=== PATIENT | female | born 1980 | race Caucasian/White ===

== ENCOUNTER 2024-03-08 17:24 | Emergency (ER) | payer MEDICARE, MEDICAID, SELFPAY ==
[2024-03-08 17:35] VITALS: BP 134/81; PULSE 119; RESP 16; TEMP 37.2; O2SAT 100
--- NOTE | 2024-03-08 18:34 | ED.WOUNDLAC ---
HPI - Wound/Laceration General Chief Complaint: Wound/Laceration Stated Complaint: Insect Bite Time Seen by Provider: 03/08/24 18:35 Source: patient, RN notes reviewed and old records reviewed Mode of arrival: ambulatory Limitations: no limitations History of Present Illness HPI narrative: 44 year old female presents to [facility] with complaints of noting 3 days ago a bug bite below right anterior knee which has increased in redness and pain with white pustule type of wound noted. Patient has pain and redness from below knee to anterior lower leg. Patient reports no fevers, chills or body aches. Patient requesting refills of asthma and depression medication has appointment with new provider in April. Patient does not know dose and is not completely sure of past depression medication, is not noted to of been refilled in some time per medication history. Onset (ago): day(s) (3) Location: other (below right anterior knee) Extremity Location: Right: knee (pustule lesion with surrounding redness below patella) Treatments prior to arrival: other (none) Related Data Home Medications Medication Instructions Recorded Confirmed Depression Med. 03/08/24 albuterol 03/08/24 Allergies Allergy/AdvReac Type Severity Reaction Status Date / Time clonazepam Allergy Unknown Unknown Verified 03/08/24 18:06 tramadol AdvReac Unknown NAUSEA Verified 02/07/17 14:38 Review of Systems Review of Systems: CONSTITUTIONAL: Denies fever, chills, or sweats. CARDIOVASCULAR: Denies chest pain, palpitations, or edema. RESPIRATORY: Denies cough or dyspnea. GASTROINTESTINAL: Denies abdominal pain, nausea, vomiting SKIN: Reports redness and swelling, pain to below right knee with whitish pimple type of lesion with surrounding redness and pain down anterior leg. No drainage, noted is painful MUSCULOSKELETAL: Denies myalgia. NEUROLOGIC: Denies headache, numbness All systems reviewed & are unremarkable except as noted in HPI and below PMFSH Past Medical History Medical History Asthma Bacterial vaginosis Bipolar disorder Depression Surgical History Surgical History H/O hemorrhoidectomy H/O sinus surgery H/O tubal ligation History of inguinal hernia repair, bilateral Previous section x3 Family History Family History Father Family history of bipolar disorder Family history of heart disease in male family member before age 55 Social History Social History Smoking status: Heavy tobacco smoker Alcohol intake: never Comments At time of signature, agree with nursing past medical, surgical, social and family history. There is no relevant family history pertinent to the presenting complaint Exam Narrative: GENERAL: Well-appearing, well-nourished, and in no acute distress. HEAD: Normocephalic, atraumatic. EYES: PERRLA and EOMI. ENT: Nares clear, no rhinorrhea or epistaxis. Mucous membranes moist.TM's normal, throat pink with no redness or swelling NECK: Supple.no lymphadenopathy CHEST: Clear to auscultation. No respiratory distress.occasional cough noted. SAO2 100% on room air reports history of asthma and smokes 1ppd HEART: Regular rate and rhythm. No murmur heard. Normal peripheral pulses. ABDOMEN: Soft, nontender, nondistended, normal active bowel sounds. EXTREMITIES: Normal range of motion. No edema. SKIN: Warm, dry. Erythema, induration, tenderness, below right knee area with radiation of pain down anterior leg, warmth with pustule formation with surrounding redness, no drainage noted no fluctuation of tissue noted. NEURO: No focal deficits. Alert and oriented x3. Course Course Emergency Course: Patient is aware of diagnosis, understands and agrees to treatment plan. Anticipatory guidance given
== END 2024-03-08 18:52 | disposition home or self-care (01) ==
PROVIDERS: Emergency Provider Registered Nurse
DX: L02.415 Cutaneous abscess of right lower limb (principal); F17.200 Nicotine dependence, unspecified, uncomplicated; J45.909 Unspecified asthma, uncomplicated
CPT/HCPCS: 99213; G0463

== ENCOUNTER 2024-03-10 20:02 | Emergency (ER) | payer MEDICARE, MEDICAID, SELFPAY ==
[2024-03-10 20:14] VITALS: BP 121/87; PULSE 107; RESP 14; O2SAT 98
--- NOTE | 2024-03-10 20:14 | ED_ITS ---
HPI - Animal Bite General Chief Complaint: Animal Bite Stated Complaint: spinder bite knee right Time Seen by Provider: 03/10/24 20:14 Source: patient Mode of arrival: ambulatory Limitations: no limitations History of Present Illness HPI narrative: 44 YEARS OLD WHITE FEMALE CAME TO THE ED BY PRIVATE CAR COMPLAINING OF POSSIBLE SPIDER BITE TO THE FRONT OF THE RIGHT KNEE STARTED 6 DAYS AGO A RED PIMPLE, PATIENT KEPT SQUEEZING IT, WAS SEEN BY URGENT CARE 3 DAYS AGO, HAD A PRESCRIPTION OF CLINDAMYCIN WAS NOT ABLE TO AFFORD IT. PATIENT DENIES ANY FEVER, CHILLS, NAUSEA, VOMITING, ABDOMINAL PAIN OR DIAPHORESIS. / PATIENT REPORTS SOME IRRITATION OF THE LEFT EYE, PINK, EYELASHES CRUSTS STARTED 2 DAYS AGO POSSIBLY SQUEEZING HER RIGHT KNEE INFECTION AND RUB IT IN HER EYES. Related Data Home Medications Medication Instructions Recorded Confirmed Depression Med. 03/08/24 albuterol 03/08/24 Allergies Allergy/AdvReac Type Severity Reaction Status Date / Time clonazepam Allergy Unknown Unknown Verified 03/08/24 18:06 tramadol AdvReac Unknown NAUSEA Verified 02/07/17 14:38 Review of Systems Review of Systems: All systems reviewed & are unremarkable except as noted in HPI and below PMFSH Past Medical History Medical History Asthma Bacterial vaginosis Bipolar disorder Depression Surgical History Surgical History H/O hemorrhoidectomy H/O sinus surgery H/O tubal ligation History of inguinal hernia repair, bilateral Previous section x3 Family History Family History Father Family history of bipolar disorder Family history of heart disease in male family member before age 55 Social History Social History Smoking status: Heavy tobacco smoker Alcohol intake: never Exam Narrative: GENERAL APPEARANCE: WELL-DEVELOPED, WELL-NOURISHED SKIN: NORMAL COLOR . RIGHT KNEE EXAM SHOWED 3 X 2 CM ABSCESS LIKE LESION, OOZING PUS SURROUNDED BY ERYTHEMA DIFFUSELY TENDER HEAD: NORMOCEPHALIC, NONTRAUMATIC EYES: LEFT EYE INJECTED CONJUNCTIVA WITH CRUSTS ON THE EYELASHES ENT: OROPHARYNX NORMAL, EARS NORMAL, NOSE NORMAL N VASCULAR: NORMAL PERIPHERAL PULSES, NORMAL CAPILLARY REFILL. MUSCULOSKELETAL: NORMAL RANGE OF MOTION, NONTENDER BACK NEUROLOGIC: ALERT AND ORIENTED ?3, [employer]OLLEY [employer] OVERHAULER IS NORMAL TESTED, NO GROSS MOTOR DEFICIT Course Vital Signs Vital signs: Vital Signs Pulse Rate 107 H 03/10/24 20:14 Respiratory Rate 14 03/10/24 20:14 Blood Pressure 121/87 03/10/24 20:14 Pulse Oximetry 98 03/10/24 20:14 Pulse Rate 96 03/10/24 21:25 Respiratory Rate 14 03/10/24 21:25 Blood Pressure 121/74 03/10/24 21:25 Pulse Oximetry 98 03/10/24 21:25 Procedures Abscess I/D lower extremity: Date of Incision: 03/10/24 Time of Incision: 22:28 Side (if applicable): right Local Anesthetic: lidocaine 1% Amount of anesthesia used (mL): 5 Amount of fluid expressed (mL): 4 Irrigation: No Packing used?: iodoform I&D Results: Pus Complications: pain MDM - Animal Bite MDM Narrative Medical decision making narrative: PATIENT PRESENTS WITH ABSCESS AT THE RIGHT KNEE ANTERIORLY AND LEFT CONJUNCTIVITIS INCISION AND DRAINAGE, CULTURE OBTAINED, PACKING, DISCHARGED ON CLINDAMYCIN AND CIPROFLOXACIN EYEDROPS Differential Diagnosis Differential diagnosis: Likely other ( POSSIBLE INFECTION SECONDARY TO SHAVING, STAPH INFECTION IS HIGH LIKELY) Critical Care Time Critical Care Time Critical Care Time: No Discharge Plan Discharge Clinical Impression: Abscess, Conjunctivitis Patient Disposition: Home, Self-Care Condition: Stable Instructions: Antibiotic Form, Abscess (ED), Conjunctivitis (ED) Additional Instructions: DISCHARGE INSTRUCTIONS, RETURN IF SYMPTOMS ARE WORSENING , CALL YOUR FAMILY PHYSICIAN FOR APPOINTMENT, TAKE TYLENOL NEEDED FOR ACHES AND PAIN, CONTINUE HOME MEDICATIONS.REMOVE PACKING IN 48 HOURS Prescriptions: New clindamycin HCl [Cleocin HCl] 300 mg capsule 300 mg PO Q6H Qty: 40 0RF No Action Depression Med. albuterol clindamycin HCl 300 mg capsule 300 mg PO Q8H Qty: 30 0RF mupirocin 2 % ointment 1 applic topical BID Qty: 22 0RF albuterol sulfate 90 mcg/actuation HFA aerosol inhaler 2 puff inhalation QID PRN (Reason: shortness of breath or wheezing) Qty: 8.5 0RF Follow-up/Referrals: PHYSICIAN,HYDROELECTRIC PLANT TECHNICIAN [Non-Staff] - Jason Mcneil MD [Physician] - 03/14/24
[2024-03-10 21:25] VITALS: BP 121/74; PULSE 96; RESP 14; O2SAT 98
[2024-03-10] MEDS: IBUPROFEN 600 MG TABLET PO (21:25)
[2024-03-10] MEDS: HYDROcodone/acetaminophen (*CRX) 5-325 MG TABLET 1 TAB PO (21:26)
[2024-03-10] MEDS: CLINDAMYCIN HCL 150 MG CAP 450 MG PO (22:03)
[2024-03-10] MEDS: CIPROFLOXACIN HCL 0.3% OP SOLN 2.5 ML BTL 1 DROP LEFT EYE (22:15)
== END 2024-03-10 23:04 | disposition home or self-care (01) ==
PROVIDERS: Emergency Provider Emergency Medicine
DX: L02.415 Cutaneous abscess of right lower limb (principal); H10.9 Unspecified conjunctivitis; J45.909 Unspecified asthma, uncomplicated; F31.9 Bipolar disorder, unspecified
CPT/HCPCS: 10061; 87070; 87181; 87205; 99283; A9270

== ENCOUNTER 2024-03-14 17:15 | Inpatient (IN) | payer OTHER, SELFPAY ==
--- NOTE | ~2024-03-14 | CT_ITS ---
EXAMINATION: CT knee RT w con DATE: 03/15/2024 10:51 INDICATION: Right knee abscess. TECHNIQUE: Computed tomography (CT) of the right knee was performed with 100 mL Omnipaque 350 intrave nous contrast. Automated exposure control and iterative reconstruction technique were employed. The d ose-length product was 534.49 mGy-cm. COMPARISON: Right knee radiographs 03/14/2024 FINDINGS: Alignment is normal. No fracture. Joint spaces are normal. There is a trace knee joint effu brian. There is mild prepatellar and superficial infrapatellar bursitis. There is skin thickening ante rior to proximal tibia. IMPRESSION: 1. Mild prepatellar and superficial infrapatellar bursitis with skin thickening. No drainable fluid c ollection. 2. Trace knee joint effusion. Reviewed, dictated and finalized at location B. IMPRESSION: 1. Mild prepatellar and superficial infrapatellar bursitis with skin thickening . No drainable fluid collection. 2. Trace knee joint effusion.
--- NOTE | ~2024-03-14 | XR_ITS ---
XR knee RT min 4V Ordering provider: Ellen Padilla PA-C History: . right knee pain, redness, swelling . Comparison: None. FINDINGS: BONES: No acute fracture or dislocation. JOINT SPACES: Normal. SOFT TISSUES: Normal. IMPRESSION: No acute osseous abnormality right knee. Reviewed, dictated and finalized at location A.
--- NOTE | ~2024-03-14 | CT_ITS ---
EXAMINATION: CT knee LT wo con DATE: 03/16/2024 08:02 INDICATION: Left knee joint effusion TECHNIQUE: High resolution computed tomography (CT) of the left knee was performed without intravenou s contrast. Additional sagittal and coronal reconstructions were performed. Automated exposure contro l and iterative reconstruction technique were employed. The dose-length product was 519.42 mGy-cm. COMPARISON: None FINDINGS: Bone alignment is normal. No fracture. Joint spaces appear normal on nonweightbearing imaging with no osteophytosis or cortical erosions. A few small sclerotic bone islands at the proximal tibia. No kne e joint effusion. Very small Milner's cyst. There is prepatellar soft tissue swelling with increased d ensity to the fat, surrounding stranding and underlying mild skin thickening suspicious for celluliti s and/or prepatellar bursitis. No stranding in the deeper fat pads about the knee. Visualized muscles , tendons and ligaments appear unremarkable although assessment is significantly more limited than wi th MRI. IMPRESSION: 1. Prepatellar soft tissue swelling suspicious for cellulitis and/or prepatellar bursitis. 2. Very small Milner's cyst. No knee joint effusion. Reviewed, dictated and finalized at location A. IMPRESSION: 1. Prepatellar soft tissue swelling suspicious for cellulitis and/or prepatella r bursitis. 2. Very small Milner's cyst. No knee joint effusion.
[2024-03-14 17:20] VITALS: BP 117/83; PULSE 100; RESP 20; TEMP 36.6; O2SAT 98
--- NOTE | 2024-03-14 17:51 | ED.GENADULT ---
HPI - General Adult General Chief complaint: Recheck/Abnormal Lab/Rx <Mary Hayden, GLASS CYLINDER FLANGER - Last Filed: 03/14/24 17:55> Stated complaint: MRSA+, vomiting <Mary Hayden GLASS CYLINDER FLANGER - Last Filed: 03/14/24 17:55> Time Seen by Provider: 03/14/24 17:30 <Mary Hayden GLASS CYLINDER FLANGER - Last Filed: 03/14/24 17:55> Focused HPI: Patient is a 44-year-old female who presents to the ER with an open wound on her right knee that was swabbed and came back positive for MRSA. She endorses a fever over the last couple of days, headache, emesis, and generalized body pains. Patient reports she was given a prescription for antibiotics but she cannot afford them, as they are 200 dollars. she denies chest pain and shortness of breath. Patient does endorse photophobia. GENERAL: Well-appearing, poorly-nourished, and in mild distress d/t pain. HEAD: Normocephalic, atraumatic. CHEST: Clear to auscultation. ?No respiratory distress. HEART: Regular rate and rhythm.? NEURO: ?Alert and oriented x3. Patient screened in triage and initial orders placed.? ?Additional care and disposition to be based upon?diagnostic testing and treatment. <Mary Hayden, GLASS CYLINDER FLANGER - Last Filed: 03/14/24 17:55> Focused HPI: Patient is a 44-year-old female who presents to the ER with an open wound on her right knee that was swabbed and came back positive for MRSA. She endorses a fever over the last couple of days, headache, emesis, and generalized body pains. Patient reports she was given a prescription for antibiotics but she cannot afford them, as they are 200 dollars. she denies chest pain and shortness of breath. GENERAL: Well-appearing, poorly-nourished, and in mild distress d/t pain. HEAD: Normocephalic, atraumatic. CHEST: Clear to auscultation. ?No respiratory distress. HEART: Regular rate and rhythm.? NEURO: ?Alert and oriented x3. Patient screened in triage and initial orders placed.? ?Additional care and disposition to be based upon?diagnostic testing and treatment. <Ellen Padilla PA-C - Last Filed: 03/15/24 02:45> Related Data Home medications: Home Medications Medication Instructions Recorded Confirmed No Home Medications 03/15/24 03/15/24 <Mary Hayden APRN - Last Filed: 03/14/24 17:55> Allergies/adverse reactions: Allergies Allergy/AdvReac Type Severity Reaction Status Date / Time clonazepam Allergy Unknown Unknown Verified 03/15/24 02:30 tramadol AdvReac Unknown NAUSEA Verified 03/15/24 02:30 <Mary Hayden APRN - Last Filed: 03/14/24 17:55> Review of Systems Review of Systems: CONSTITUTIONAL: Reports fever EYES: Reports redness, and discharge. SKIN: Reports redness and swelling NEUROLOGIC: Reports headache <Ellen Padilla PA-C - Last Filed: 03/15/24 02:45> All systems reviewed & are unremarkable except as noted in HPI and below <Ellen Padilla PA-C - Last Filed: 03/15/24 02:45> [facility]LY [facility] Past Medical History Medical History: Medical History Asthma Bacterial vaginosis Bipolar disorder Depression <Mary Hayden APRN - Last Filed: 03/14/24 17:55> Surgical History Surgical History: Surgical History H/O hemorrhoidectomy H/O sinus surgery H/O tubal ligation History of inguinal hernia repair, bilateral Previous section x3 <Mary Hayden APRN - Last Filed: 03/14/24 17:55> Family History Family History: Family History Father Family history of bipolar disorder Family history of heart disease in male family member before age 55 <Mary Hayden APRN - Last Filed: 03/14/24 17:55> Social History Social History: Social History Smoking packs per day: 1 Smoking cigarettes per day: 20.0 Years smoked: 20 Smoking pack-years: 20.00 Smoking status: Current every day smoker Alcohol intake: never Substance use type: marijuana and methamphetamine Do You Feel Safe in your Home?: Yes Lack of Transportation: YES Lack of Food: Often True Current Housing: I Do Not Have Housing Concerned About Future Housing: YES Difficulty Paying Gas/Electric Bills: Decline to Answer Difficulty Paying for Meds: YES Currently Unemployed: No Education: High School Diploma/GED Difficulty w/ Childcare or Family Care: No Spiritual care concerns: No <Mary Hayden APRN - Last Filed: 03/14/24 17:55> Exam Narrative: GENERAL: Well-appearing, well-nourished, and in no acute distress. HEAD: Normocephalic, atraumatic. EYES: PERRLA and EOMI. ENT: Nares clear, no rhinorrhea or epistaxis. Mucous membranes moist. Oropharynx without tonsillar hypertrophy exudate or other lesions. Bilateral TMs pearly espinosa non-bulging NECK: Supple. No adenopathy or masses. CHEST: Clear to auscultation. No respiratory distress. No wheezes rales or rhonchi HEART: Regular rate and rhythm. No murmur heard. Normal peripheral pulses. EXTREMITIES: Normal range of motion. Large scabbed lesion below the right knee with mild surrounding cellulitis SKIN: Warm, dry, no rash. NEURO: No focal deficits. Alert and oriented x3. PSYCH: Normal mood and affect <Ellen Padilla PA-C - Last Filed: 03/15/24 02:45> Course Course Emergency Course: Patient updated on her workup and recommendation for admission <Ellen Padilla PA-C - Last Filed: 03/15/24 02:45> Consultations Consultation #1: Spoke with hospitalist about patient and workup who accepts admission <SERA Perkins Last Filed: 03/15/24 02:45> Date: 03/15/24 <Ellen Padilla PA-C - Last Filed: 03/15/24 02:45> Vital Signs Vital signs: Vital Signs Temperature 98 F 03/14/24 17:20 Pulse Rate 100 03/14/24 17:20 Respiratory Rate 20 03/14/24 17:20 Blood Pressure 117/83 03/14/24 17:20 Pulse Oximetry 98 03/14/24 17:20 Oxygen Delivery Room Air 03/14/24 17:20 Temperature 97.9 F 03/15/24 01:21 Pulse Rate 69 03/15/24 01:21 Respiratory Rate 14 03/15/24 01:21 Blood Pressure 101/62 03/15/24 01:21 Pulse Oximetry 100 03/15/24 01:21 Oxygen Delivery Room Air 03/14/24 17:20 <Mary Hayden, GLASS CYLINDER FLANGER - Last Filed: 03/14/24 17:55> Vital Signs Temperature 98 F 03/14/24 17:20 Pulse Rate 100 03/14/24 17:20 Respiratory Rate 20 03/14/24 17:20 Blood Pressure 117/83 03/14/24 17:20 Pulse Oximetry 98 03/14/24 17:20 Oxygen Delivery Room Air 03/14/24 17:20 Temperature 97.9 F 03/15/24 01:21 Pulse Rate 69 03/15/24 01:21 Respiratory Rate 14 03/15/24 01:21 Blood Pressure 101/62 03/15/24 01:21 Pulse Oximetry 100 03/15/24 01:21 Oxygen Delivery Room Air 03/14/24 17:20 <Ellen Padilla PA-C - Last Filed: 03/15/24 02:45> Medical Decision Making MDM Narrative Medical decision making narrative: Patient presents to the emergency department for cellulitis to the right lower leg. Had an abscess drained in the area in the ER couple of days prior. She has not taken any of her antibiotics as she cannot afford them. She is afebrile and nontoxic appearing. Her vitals are stable. CBC with leukocytosis to 10.7. Shows some hemoconcentration. Patient hydrated with IV fluids in the ED. Metabolic panel without concerning findings. Patient additionally endorsing vaginal irritation, wanting to be tested for STDs. Urine with evidence of infection. Will be started on Rocephin. Trichomonas is positive. Chlamydia and gonorrhea are negative. Patient will be started on metronidazole. Patient will also be started on vancomycin for cellulitis surrounding her recently drained abscess. Spoke with hospitalist about patient and workup who accepts admission <Ellen Padilla PA-C - Last Filed: 03/15/24 02:45> Vital Signs Vital Signs: Vital Signs Temperature 98 F 03/14/24 17:20 Pulse Rate 100 03/14/24 17:20 Respiratory Rate 20 03/14/24 17:20 Blood Pressure 117/83 03/14/24 17:20 Pulse Oximetry 98 03/14/24 17:20 Oxygen Delivery Room Air 03/14/24 17:20 Temperature 97.9 F 03/15/24 01:21 Pulse Rate 69 03/15/24 01:21 Respiratory Rate 14 03/15/24 01:21 Blood Pressure 101/62 03/15/24 01:21 Pulse Oximetry 100 03/15/24 01:21 Oxygen Delivery Room Air 03/14/24 17:20 <Mary Hayden APRN - Last Filed: 03/14/24 17:55> Vital Signs Temperature 98 F 03/14/24 17:20 Pulse Rate 100 03/14/24 17:20 Respiratory Rate 20 03/14/24 17:20 Blood Pressure 117/83 03/14/24 17:20 Pulse Oximetry 98 03/14/24 17:20 Oxygen Delivery Room Air 03/14/24 17:20 Temperature 97.9 F 03/15/24 01:21 Pulse Rate 69 03/15/24 01:21 Respiratory Rate 14 03/15/24 01:21 Blood Pressure 101/62 03/15/24 01:21 Pulse Oximetry 100 03/15/24 01:21 Oxygen Delivery Room Air 03/14/24 17:20 <Ellen Padilla PA-C - Last Filed: 03/15/24 02:45> Lab Data Lab results reviewed: Yes I reviewed the patient's lab results. <Ellen Padilla PA-C - Last Filed: 03/15/24 02:45> Result diagrams: 03/14/24 18:57 03/14/24 18:57 <Mary Hayden APRN - Last Filed: 03/14/24 17:55> Labs: Lab Results 03/14/24 03/15/24 03/15/24 Range/Units 18:57 00:27 00:31 WBC 10.7 H (4.5-10.0) K/mm3 RBC 4.90 (4.2-5.4) M/mm3 Hgb 15.2 H (12.0-15.0) g/dL Hct 44.7 (37.0-47.0) % MCV 91.2 (80-100) fl MCH 31.0 (26-34) pg MCHC 34.0 (32-36) g/dl RDW 13.3 (11.5-14.5) % Plt Count 327 (150-375) k/mm3 MPV 9.9 (7.4-10.4) fl Immature Gran % (Auto) 0.5 (0-0.5) % Neut % (Auto) 78.6 H (45.5-73.1) % Lymph % (Auto) 11.9 L (18.3-44.2) % [place] % (Auto) 7.0 (2.6-8.5) % Eos % (Auto) 1.4 (0-4.4) % Baso % (Auto) 0.6 (0.2-1.2) % Lymph # (Auto) 1.27 (0.9-3.2) K/mm3 [place] # (Auto) 0.8 H (0.1-0.6) K/mm3 Eos # (Auto) 0.2 (0-0.3) K/mm3 Baso # (Auto) 0.1 (0.0-0.1) K/mm3 Abs Immat Gran (auto) 0.05 H (0.00-0.031) K/mm3 Absolute Neuts (auto) 8.4 H (1.3-6.7) K/mm3 Absolute Nucleated RBC 0.000 (0.0-0.012) K/mm3 Nucleated RBC % 0.0 (0.0-0.2) % ESR 16 (0-20) mm/hr PT 12.9 (11.1-14.7) Seconds INR 0.9 APTT 26.2 (22.3-36.8) Seconds Sodium 138 (137-145) mmol/L Potassium 3.8 (3.4-5.0) mmol/L Chloride 102 (98-107) mmol/L Carbon Dioxide 25 (22-30) mmol/L Anion Gap 11 (4-12) mmol/L BUN 16 (7-17) mg/dL Creatinine 0.60 L (0.7-1.0) mg/dL Estim Creat Clear Calc 96 ml/min Estimated GFR > 60 (59 - ) Glucose 115 H (65-110) mg/dL Lactic Acid 0.8 (0.7-2.0) mmol/L Calcium 9.0 (8.4-10.2) mg/dL Total Bilirubin 0.2 (0.2-1.3) mg/dL AST 23 (14-36) U/L ALT 22 (6-35) U/L Alkaline Phosphatase 58 (38-126) U/L C-Reactive Protein 0.5 (<1.0) mg/dL Total Protein 8.0 (6.3-8.2) g/dL Albumin 4.3 (3.5-5.1) g/dL Urine Color Yellow (Yellow) Urine Appearance Cloudy H (Clear) Urine pH 7.0 (5.0-9.0) Ur Specific [place] 1.013 (1.001-1.035) Urine Protein Negative (Negative) mg/dL Urine Glucose (UA) Negative (Negative) mg/dL Urine Ketones Trace H (Negative) mg/dL Ur Blood (Man) Negative (Negative) Urine Nitrate Positive H (Negative) Urine Bilirubin Negative (Negative) Urine Urobilinogen 0.2 (<2.0) mg/dL Add Ur Microanalysis Reviewed Leukocyte Esterase Rfl 2+ H (Negative) JAI/UL Urine RBC 0-2 (0-2) /hpf Urine WBC 51-100 H (0-3) /hpf Urine WBC Clumps Present H (None) /HPF Ur Squamous Epith Cells Occasional (Few) /hpf Urine Bacteria 4+ /hpf Urine Casts 0-2 Urine Mucus Present /lpf POC Urine HCG, Qual (Negative) Urine Opiates Screen Negative (Negative) Urine Methadone Screen Negative (Negative) Ur Barbiturates Screen Negative (Negative) Ur Phencyclidine Scrn Negative (Negative) Ur Amphetamine Screen Pending U Benzodiazepines Scrn Negative (Negative) Urine Cocaine Screen Negative (Negative) U Cannabinoids Screen Negative (Negative) C. trachomatis (PCR) Not detected (NOT DETECTE) HIV 1&2 Ab/P24 Ag 4thGn Pending N. gonorrhoeae (PCR) Not detected (NOT DETECTE) T. vaginalis (PCR) Detected A (NOT DETECTE) Bact Vaginosis Panel Pending 03/15/24 Range/Units 00:34 WBC (4.5-10.0) K/mm3 RBC (4.2-5.4) M/mm3 Hgb (12.0-15.0) g/dL Hct (37.0-47.0) % MCV (80-100) fl MCH (26-34) pg MCHC (32-36) g/dl RDW (11.5-14.5) % Plt Count (150-375) k/mm3 MPV (7.4-10.4) fl Immature Gran % (Auto) (0-0.5) % Neut % (Auto) (45.5-73.1) % Lymph % (Auto) (18.3-44.2) % Prentiss % (Auto) (2.6-8.5) % Eos % (Auto) (0-4.4) % Baso % (Auto) (0.2-1.2) % Lymph # (Auto) (0.9-3.2) K/mm3 [place]iss # (Auto) (0.1-0.6) K/mm3 Eos # (Auto) (0-0.3) K/mm3 Baso # (Auto) (0.0-0.1) K/mm3 Abs Immat Gran (auto) (0.00-0.031) K/mm3 Absolute Neuts (auto) (1.3-6.7) K/mm3 Absolute Nucleated RBC (0.0-0.012) K/mm3 Nucleated RBC % (0.0-0.2) % ESR (0-20) mm/hr PT (11.1-14.7) Seconds INR APTT (22.3-36.8) Seconds Sodium (137-145) mmol/L Potassium (3.4-5.0) mmol/L Chloride (98-107) mmol/L Carbon Dioxide (22-30) mmol/L Anion Gap (4-12) mmol/L BUN (7-17) mg/dL Creatinine (0.7-1.0) mg/dL Estim Creat Clear Calc ml/min Estimated GFR (59 - ) Glucose (65-110) mg/dL Lactic Acid (0.7-2.0) mmol/L Calcium (8.4-10.2) mg/dL Total Bilirubin (0.2-1.3) mg/dL AST (14-36) U/L ALT (6-35) U/L Alkaline Phosphatase (38-126) U/L C-Reactive Protein (<1.0) mg/dL Total Protein (6.3-8.2) g/dL Albumin (3.5-5.1) g/dL Urine Color (Yellow) Urine Appearance (Clear) Urine pH (5.0-9.0) Ur Specific [place] (1.001-1.035) Urine Protein (Negative) mg/dL Urine Glucose (UA) (Negative) mg/dL Urine Ketones (Negative) mg/dL Ur Blood (Man) (Negative) Urine Nitrate (Negative) Urine Bilirubin (Negative) Urine Urobilinogen (<2.0) mg/dL Add Ur Microanalysis Leukocyte Esterase Rfl (Negative) JAI/UL Urine RBC (0-2) /hpf Urine WBC (0-3) /hpf Urine WBC Clumps (None) /HPF Ur Squamous Epith Cells (Few) /hpf Urine Bacteria /hpf Urine Casts Urine Mucus /lpf POC Urine HCG, Qual Negative (Negative) Urine Opiates Screen (Negative) Urine Methadone Screen (Negative) Ur Barbiturates Screen (Negative) Ur Phencyclidine Scrn (Negative) Ur Amphetamine Screen U Benzodiazepines Scrn (Negative) Urine Cocaine Screen (Negative) U Cannabinoids Screen (Negative) C. trachomatis (PCR) (NOT DETECTE) HIV 1&2 Ab/P24 Ag 4thGn N. gonorrhoeae (PCR) (NOT DETECTE) T. vaginalis (PCR) (NOT DETECTE) Bact Vaginosis Panel <Mary Hayden, GLASS CYLINDER FLANGER - Last Filed: 03/14/24 17:55> Lab Results 03/14/24 03/15/24 03/15/24 Range/Units 18:57 00:27 00:31 WBC 10.7 H (4.5-10.0) K/mm3 RBC 4.90 (4.2-5.4) M/mm3 Hgb 15.2 H (12.0-15.0) g/dL Hct 44.7 (37.0-47.0) % MCV 91.2 (80-100) fl MCH 31.0 (26-34) pg MCHC 34.0 (32-36) g/dl RDW 13.3 (11.5-14.5) % Plt Count 327 (150-375) k/mm3 MPV 9.9 (7.4-10.4) fl Immature Gran % (Auto) 0.5 (0-0.5) % Neut % (Auto) 78.6 H (45.5-73.1) % Lymph % (Auto) 11.9 L (18.3-44.2) % P[place]iss % (Auto) 7.0 (2.6-8.5) % Eos % (Auto) 1.4 (0-4.4) % Baso % (Auto) 0.6 (0.2-1.2) % Lymph # (Auto) 1.27 (0.9-3.2) K/mm3 [place] # (Auto) 0.8 H (0.1-0.6) K/mm3 Eos # (Auto) 0.2 (0-0.3) K/mm3 Baso # (Auto) 0.1 (0.0-0.1) K/mm3 Abs Immat Gran (auto) 0.05 H (0.00-0.031) K/mm3 Absolute Neuts (auto) 8.4 H (1.3-6.7) K/mm3 Absolute Nucleated RBC 0.000 (0.0-0.012) K/mm3 Nucleated RBC % 0.0 (0.0-0.2) % ESR 16 (0-20) mm/hr PT 12.9 (11.1-14.7) Seconds INR 0.9 APTT 26.2 (22.3-36.8) Seconds Sodium 138 (137-145) mmol/L Potassium 3.8 (3.4-5.0) mmol/L Chloride 102 (98-107) mmol/L Carbon Dioxide 25 (22-30) mmol/L Anion Gap 11 (4-12) mmol/L BUN 16 (7-17) mg/dL Creatinine 0.60 L (0.7-1.0) mg/dL Estim Creat Clear Calc 96 ml/min Estimated GFR > 60 (59 - ) Glucose 115 H (65-110) mg/dL Lactic Acid 0.8 (0.7-2.0) mmol/L Calcium 9.0 (8.4-10.2) mg/dL Total Bilirubin 0.2 (0.2-1.3) mg/dL AST 23 (14-36) U/L ALT 22 (6-35) U/L Alkaline Phosphatase 58 (38-126) U/L C-Reactive Protein 0.5 (<1.0) mg/dL Total Protein 8.0 (6.3-8.2) g/dL Albumin 4.3 (3.5-5.1) g/dL Urine Color Yellow (Yellow) Urine Appearance Cloudy H (Clear) Urine pH 7.0 (5.0-9.0) Ur Specific [place] 1.013 (1.001-1.035) Urine Protein Negative (Negative) mg/dL Urine Glucose (UA) Negative (Negative) mg/dL Urine Ketones Trace H (Negative) mg/dL Ur Blood (Man) Negative (Negative) Urine Nitrate Positive H (Negative) Urine Bilirubin Negative (Negative) Urine Urobilinogen 0.2 (<2.0) mg/dL Add Ur Microanalysis Reviewed Leukocyte Esterase Rfl 2+ H (Negative) JAI/UL Urine RBC 0-2 (0-2) /hpf Urine WBC 51-100 H (0-3) /hpf Urine WBC Clumps Present H (None) /HPF Ur Squamous Epith Cells Occasional (Few) /hpf Urine Bacteria 4+ /hpf Urine Casts 0-2 Urine Mucus Present /lpf POC Urine HCG, Qual (Negative) Urine Opiates Screen Negative (Negative) Urine Methadone Screen Negative (Negative) Ur Barbiturates Screen Negative (Negative) Ur Phencyclidine Scrn Negative (Negative) Ur Amphetamine Screen Pending U Benzodiazepines Scrn Negative (Negative) Urine Cocaine Screen Negative (Negative) U Cannabinoids Screen Negative (Negative) C. trachomatis (PCR) Not detected (NOT DETECTE) HIV 1&2 Ab/P24 Ag 4thGn Pending N. gonorrhoeae (PCR) Not detected (NOT DETECTE) T. vaginalis (PCR) Detected A (NOT DETECTE) Bact Vaginosis Panel Pending 03/15/24 Range/Units 00:34 WBC (4.5-10.0) K/mm3 RBC (4.2-5.4) M/mm3 Hgb (12.0-15.0) g/dL Hct (37.0-47.0) % MCV (80-100) fl MCH (26-34) pg MCHC (32-36) g/dl RDW (11.5-14.5) % Plt Count (150-375) k/mm3 MPV (7.4-10.4) fl Immature Gran % (Auto) (0-0.5) % Neut % (Auto) (45.5-73.1) % Lymph % (Auto) (18.3-44.2) % [place] % (Auto) (2.6-8.5) % Eos % (Auto) (0-4.4) % Baso % (Auto) (0.2-1.2) % Lymph # (Auto) (0.9-3.2) K/mm3 [place] # (Auto) (0.1-0.6) K/mm3 Eos # (Auto) (0-0.3) K/mm3 Baso # (Auto) (0.0-0.1) K/mm3 Abs Immat Gran (auto) (0.00-0.031) K/mm3 Absolute Neuts (auto) (1.3-6.7) K/mm3 Absolute Nucleated RBC (0.0-0.012) K/mm3 Nucleated RBC % (0.0-0.2) % ESR (0-20) mm/hr PT (11.1-14.7) Seconds INR APTT (22.3-36.8) Seconds Sodium (137-145) mmol/L Potassium (3.4-5.0) mmol/L Chloride (98-107) mmol/L Carbon Dioxide (22-30) mmol/L Anion Gap (4-12) mmol/L BUN (7-17) mg/dL Creatinine (0.7-1.0) mg/dL Estim Creat Clear Calc ml/min Estimated GFR (59 - ) Glucose (65-110) mg/dL Lactic Acid (0.7-2.0) mmol/L Calcium (8.4-10.2) mg/dL Total Bilirubin (0.2-1.3) mg/dL AST (14-36) U/L ALT (6-35) U/L Alkaline Phosphatase (38-126) U/L C-Reactive Protein (<1.0) mg/dL Total Protein (6.3-8.2) g/dL Albumin (3.5-5.1) g/dL Urine Color (Yellow) Urine Appearance (Clear) Urine pH (5.0-9.0) Ur Specific [place] (1.001-1.035) Urine Protein (Negative) mg/dL Urine Glucose (UA) (Negative) mg/dL Urine Ketones (Negative) mg/dL Ur Blood (Man) (Negative) Urine Nitrate (Negative) Urine Bilirubin (Negative) Urine Urobilinogen (<2.0) mg/dL Add Ur Microanalysis Leukocyte Esterase Rfl (Negative) JAI/UL Urine RBC (0-2) /hpf Urine WBC (0-3) /hpf Urine WBC Clumps (None) /HPF Ur Squamous Epith Cells (Few) /hpf Urine Bacteria /hpf Urine Casts Urine Mucus /lpf POC Urine HCG, Qual Negative (Negative) Urine Opiates Screen (Negative) Urine Methadone Screen (Negative) Ur Barbiturates Screen (Negative) Ur Phencyclidine Scrn (Negative) Ur Amphetamine Screen U Benzodiazepines Scrn (Negative) Urine Cocaine Screen (Negative) U Cannabinoids Screen (Negative) C. trachomatis (PCR) (NOT DETECTE) HIV 1&2 Ab/P24 Ag 4thGn N. gonorrhoeae (PCR) (NOT DETECTE) T. vaginalis (PCR) (NOT DETECTE) Bact Vaginosis Panel <Ellen Padilla PA-C - Last Filed: 03/15/24 02:45> Imaging Data Radiologist's impression: ITS Impressions Knee X-Ray 03/14/24 23:59 IMPRESSION: No acute osseous abnormality right knee. <SERA Perkins Last Filed: 03/15/24 02:45> Critical Care Time Critical Care Time Critical Care Time: No <SEAR Perkins Last Filed: 03/15/24 02:45> Discharge Plan Discharge Clinical Impression: Cellulitis, Trichomonal vaginitis, Acute UTI <Mary Hayden APRN - Last Filed: 03/14/24 17:55> Patient Disposition: Still a Patient <Mary Hayden APRN - Last Filed: 03/14/24 17:55> Condition: Stable <Mary Hayden APRN - Last Filed: 03/14/24 17:55>
[2024-03-14 19:05] LABS: Basophils Absolute Auto 0.1 K/mm3 (0.0-0.1); Basophils Percent Auto 0.6 % (0.2-1.2); Eosinophils Absolute Auto 0.2 K/mm3 (0-0.3); Eosinophils Percent Auto 1.4 % (0-4.4); Hematocrit 44.7 % (37.0-47.0); Hemoglobin 15.2 g/dL (12.0-15.0); Immature Granulocyte Absolute 0.05 K/mm3 (0.00-0.031); Immature Granulocyte Percent A 0.5 % (0-0.5); Lymphocytes Absolute Auto 1.27 K/mm3 (0.9-3.2); Lymphocytes Percent Auto 11.9 % (18.3-44.2); Mean Corpuscular Volume 91.2 fl (80-100); Mean Platelet Volume 9.9 fl (7.4-10.4); Monocytes Absolute Auto 0.8 K/mm3 (0.1-0.6); Neutrophils Absolute Auto 8.4 K/mm3 (1.3-6.7); Neutrophils Percent Auto 78.6 % (45.5-73.1); Platelet Count Result 327 k/mm3 (150-375); Red Cell Distribution Width 13.3 % (11.5-14.5); White Blood Count 10.7 K/mm3 (4.5-10.0)
[2024-03-14 19:16] LABS: Lactic Acid Reflex 0.8 mmol/L (0.7-2.0)
[2024-03-14 19:19] LABS: Alanine Aminotransferase 22 U/L (6-35); Albumin Level 4.3 g/dL (3.5-5.1); Alkaline Phosphatase 58 U/L (38-126); Anion Gap 11 mmol/L (4-12); Aspartate Amino Transferase 23 U/L (14-36); Bilirubin,Total 0.2 mg/dL (0.2-1.3); Blood Urea Nitrogen 16 mg/dL (7-17); CRP 0.5 mg/dL (<1.0); Carbon Dioxide 25 mmol/L (22-30); Chloride 102 mmol/L (98-107); Estimated CRCL calculation 96 ml/min; Estimated Glomerular Filt Rate > 60; Glucose 115 mg/dL (65-110); INR 0.9; Potassium 3.8 mmol/L (3.4-5.0); Prothrombin Time 12.9 Seconds (11.1-14.7); Sodium 138 mmol/L (137-145)
[2024-03-14 19:20] LABS: Partial Thromboplastin Time 26.2 Seconds (22.3-36.8)
[2024-03-14] MEDS: SODIUM CHLORIDE 0.9% IV 1,000 ML 999 ML IV CONT (22:19)
[2024-03-14 22:20] VITALS: BP 116/71; PULSE 73; RESP 20; TEMP 36.5; O2SAT 96
[2024-03-14] MEDS: METOCLOPRAMIDE HCL INJ 10 MG/2 ML VIAL IV PUSH (23:07)
[2024-03-14] MEDS: diphenhydrAMINE HCl INJ 50 MG/ML VIAL 25 MG IV PUSH (23:07)
[2024-03-14] MEDS: ACETAMINOPHEN 500 MG TABLET 1000 MG PO (23:08)
[2024-03-14 23:20] LABS: Erythrocyte Sedimentation Rate 16 mm/hr (0-20)
[2024-03-14 23:37] VITALS: BP 112/66; PULSE 73; RESP 17; TEMP 36.7; O2SAT 100
[2024-03-15 00:37] LABS: BEDSIDEPREGUCG Negative (Negative)
--- NOTE | 2024-03-15 00:51 | ECG_ITS ---
Test Date: 2024-03-15 00:48:56 Measurements Intervals [place] Rate: 72 P: 33 [place]: 125 QRS: 79 QRSD: 93 T: 48 QT: 392 QTc: 430 Interpretive Statements SINUS RHYTHM No previous ECG available for comparison Electronically Signed On 03-15-2024 09:42:28 CDT by Sunshine Scott M.D.
[2024-03-15 00:59] LABS: Add Urine Microscopic? YES; Appearance Urine Cloudy (Clear); Bacteria Urine 4+ /hpf; Bilirubin Urine Negative (Negative); Blood Urine Negative (Negative); Color Urine Yellow (Yellow); Glucose Urine UA Negative (Negative); Ketones Urine Trace mg/dL (Negative); Leukocyte Esterase Ur 2+ LEU/UL (Negative); Mucus Urine Present /lpf; Need Manual Microscopic Reviewed; Nitrate Urine Positive (Negative); Non Pathogenic Casts 0-2; Protein Urine Negative (Negative); RBC Urine 0-2 /hpf (0-2); Specific Grav Ur 1.013 (1.001-1.035); Squamous Epithelial Cell Urine Occasional /hpf (Few); Urobilinogen Urine 0.2 mg/dL (<2.0); WBC Clumps Urine Present /HPF; WBC Urine 51-100 /hpf (0-3)
[2024-03-15] MEDS: SODIUM CHLORIDE 0.9% IV 1,000 ML 999 ML IV CONT (01:20)
[2024-03-15 01:21] VITALS: BP 101/62; PULSE 69; RESP 14; TEMP 36.6; O2SAT 100
[2024-03-15 01:32] LABS: Trichomonas Vag PCR DETECTED (NOT DETECTE)
[2024-03-15 02:05] LABS: Chlamydia trachomatis NOT DETECTED (NOT DETECTE); Neisseria gonorrhoeae PCR NOT DETECTED (NOT DETECTE)
[2024-03-15 02:09] LABS: Barbiturate Screen Urine Negative (Negative); Benzodiazepines Screen Urine Negative (Negative)
[2024-03-15 02:12] LABS: Cannabinoid Screen Urine Negative (Negative); Cocaine Screen Urine Negative (Negative); Methadone Screen Urine Negative (Negative); Opiate Screen Urine Negative (Negative); Phencyclidine Screen Urine Negative (Negative)
[2024-03-15] MEDS: VANCOMYCIN 1,250 MG/NS 250 ML 1,250 MG/250 ML BAG 166.67 MG IVPB ×2 (02:19→13:47)
--- NOTE | 2024-03-15 02:32 | PC.NURSE ---
Patient states she takes no home medications r/t cost and affordability of medications. [facility] questions answered and request for assistance submitted via worklist.
[2024-03-15] MEDS: KETOROLAC 15 MG/ML VIAL (*BKC) IV PUSH (02:37)
[2024-03-15 02:46] LABS: HIV 1/2 Ab P24 Ag Result Negative (Negative)
[2024-03-15 02:53] VITALS: BP 116/77; PULSE 84; RESP 16; TEMP 36.6; O2SAT 100; BMI 26.0
[2024-03-15 03:26] LABS: Amphetamine Screen Urine Positive (Negative)
[2024-03-15] MEDS: IBUPROFEN 400 MG TABLET PO ×2 (03:52→20:16)
[2024-03-15] MEDS: FLUCONAZOLE 150 MG TABLET PO (03:52)
[2024-03-15 05:01] VITALS: BP 112/62; PULSE 71; RESP 14; TEMP 36.8; O2SAT 99
--- NOTE | 2024-03-15 05:43 | PM.IMHP ---
H&P: HPI History of Present Illness Date/Time: 03/15/24 05:43 Chief Complaint: MRSA infection, not taking antibiotics Narrative: 44-year-old female with past medical history of methamphetamine addiction, tobacco abuse, asthma, bipolar disorder, borderline personality disorder and depression resulting in disability who presented to the ER via EMS due to being called for culture result of MRSA positive infection. The patient had been evaluated at [facility] urgent [facility] on the due to a suspected bug bite to the right anterior knee with increasing redness pain. She was given prescription for clindamycin and mupirocin ointment. Patient reports that she did not fill the medications. She then came to the ER on the for similar symptoms she had been squeezing the area of infection. She had also noted developing irritation of the left eye with erythema and crusting on her eyelashes that started on the . She she thinks that she spread the infection from her knee to her eye. Her knee was I indeed on the and sent for culture which grew out MRSA. She was again prescribed clindamycin which she did not fill. She then presented to the ER again last night with now an open wound to the knee that had been I indeed. She reported subjective fever for couple of days, headache, nausea and generalized body aches. She stated today that she did not ever feel the medications because they cause 200 dollars and that she would not be able to get the medications regardless until the 20 of March when her check arrives. The patient's did have minimal leukocytosis noted on labs in the ER but was afebrile and has been so since admission. She is nontoxic-appearing. The patient states that she did have a similar left anterior jay this past summer and has a large scar just inferior to her left knee. She thought that infection was also due to a bug bite. The patient that she recently had sex with the partner in did not use protection. Since that time she has noticed increased vaginal discharge and vaginal irritation. She was concerned that given the skin infections that she was having that she may have HIV. Her HIV screen was negative. ER provider performed pelvic exam which was positive for Trichomonas. Her HIV testing was negative. Her UA was positive for trace ketones, nitrates, 2+ esterase and 50-100 wbc's with white blood cell clumps present and 4+ bacteria. She received Rocephin and Flagyl and vancomycin in the ER. When the patient had presented to urgent care she also had requested refills on her psychiatric medications and asthma medications. However she did not know what her medications were or with her doses were. She cannot recall how long it is been since she was on her psychiatric medications in there is no documentation of which medication she was on in the electronic external pharmacy record. She states that she is supposed to see a new doctor in April. Review of Systems Review of Systems: 12 systems were reviewed with pertinent positives and negatives per HPI. Except as documented in the HPI, all other systems were reviewed and are negative. [facility] Past Medical History Medical History (Updated 03/15/24 @ 08:29 by Brooke Espinal DO) Asthma Bacterial vaginosis Bipolar disorder Depression High risk HPV infection Methamphetamine addiction Surgical History Surgical History H/O hemorrhoidectomy H/O sinus surgery H/O tubal ligation History of inguinal hernia repair, bilateral Previous section x3 Family History Family History Father Family history of bipolar disorder Family history of heart disease in male family member before age 55 Social History Social History (Updated 03/15/24 @ 08:10 by Brooke Espinal DO) Social History: Patient reports that she lives with her cousin in-law and that person's mother. She is finding it difficult to find reliable housing due to limited resources. She is on disability due to her psychiatric illness. She denies any heavy alcohol use but does drink alcohol on occasion in moderation. She does have a history of intermittent smoking of methamphetamine. She has smoked approximately half a pack of cigarettes per day since her late teens or early 20s. She has 3 sons ages 17, 18 and 23. She likes to play [employer]. Code status: Full code Surrogate decision maker: Moody (18-year-old son) phone number [phone] Smoking packs per day: 1 Smoking cigarettes per day: 20.0 Years smoked: 20 Smoking pack-years: 20.00 Smoking status: Current every day smoker Alcohol intake: current Alcohol use details: On occasion and in moderation Substance use type: marijuana and methamphetamine Do You Feel Safe in your Home?: Yes Lack of Transportation: YES Lack of Food: Often True Current Housing: I Do Not Have Housing Concerned About Future Housing: YES Difficulty Paying Gas/Electric Bills: Decline to Answer Difficulty Paying for Meds: YES Currently Unemployed: No Education: High School Diploma/GED Difficulty w/ Childcare or Family Care: No Spiritual care concerns: No Meds Home Medications and Allergies Home Medications Medication Instructions Recorded Confirmed Type No Home Medications 03/15/24 03/15/24 History Allergies Allergy/AdvReac Type Severity Reaction Status Date / Time clonazepam Allergy Unknown Unknown Verified 03/15/24 02:30 tramadol AdvReac Unknown NAUSEA Verified 03/15/24 02:30 Vital Signs Vital Signs - 24 hr 03/14/24 17:20 03/14/24 22:20 03/14/24 23:37 Temperature 98 F 97.7 F 98.1 F Pulse Rate 100 73 73 Respiratory Rate 20 20 17 Blood Pressure 117/83 116/71 112/66 Pulse Oximetry 98 96 100 Oxygen Delivery Room Air 03/15/24 01:21 03/15/24 02:53 03/15/24 05:01 Temperature 97.9 F 97.9 F 98.2 F Pulse Rate 69 84 71 Respiratory Rate 14 16 14 Blood Pressure 101/62 116/77 112/62 Pulse Oximetry 100 100 99 Oxygen Delivery Exam Narrative: Weight 73.2 kg BMI 26 Const: Other: Disheveled, appears older than stated age, is a well-nourished HENMT: Other: Mucous membranes are dry, no oral pharyngeal erythema, edentulous in upper and lower jaw Eyes: Other: Pupils are equal and reactive, no scleral icterus, marked chemosis and erythema of conjunctiva Neck: Other: No JVD, no lymphadenopathy Resp: Other: Decreased breath sounds at the bases, no increased work of breathing Cardio: Other: Regular rate, regular rhythm, 2+ bilateral radial pedal pulses GI: Other: Soft, nontender, nondistended, positive bowel sounds Skin: Other: No pallor, non jaundice, erythema overlying the anterior proximal tibia and lower knee Neuro: Other: Alert oriented, speech is clear, no facial asymmetry, no tremor, no localizing neurologic deficits noted during the course of conversation, stable gait Extrem: Other: Mild clubbing of nail beds, erythema and induration of the skin right knee, area is open from area of I and D with serosanguineous drainage, small area of erythema and small pustule to the left lateral leg at the distal quadriceps just above the knee, less than a nickel in size Psych: Other: Initially on on evaluation the patient was resting comfortably one-sided reduced myself the patient became anxious, tearful, histrionic, poor judgment and insight H&P: Results Labs Labs: Laboratory Tests 03/14/24 18:57 03/14/24 18:57 03/14/24 03/15/24 03/15/24 18:57 00:27 00:31 WBC 10.7 H RBC 4.90 Hgb 15.2 H Hct 44.7 MCV 91.2 MCH 31.0 MCHC 34.0 RDW 13.3 Plt Count 327 MPV 9.9 Immature Gran % (Auto) 0.5 Neut % (Auto) 78.6 H Lymph % (Auto) 11.9 L [place] % (Auto) 7.0 Eos % (Auto) 1.4 Baso % (Auto) 0.6 Lymph # (Auto) 1.27 [place] # (Auto) 0.8 H Eos # (Auto) 0.2 Baso # (Auto) 0.1 Abs Immat Gran (auto) 0.05 H Absolute Neuts (auto) 8.4 H Absolute Nucleated RBC 0.000 Nucleated RBC % 0.0 ESR 16 PT 12.9 INR 0.9 APTT 26.2 Sodium 138 Potassium 3.8 Chloride 102 Carbon Dioxide 25 Anion Gap 11 BUN 16 Creatinine 0.60 L Estim Creat Clear Calc 96 Estimated GFR > 60 Glucose 115 H Lactic Acid 0.8 Calcium 9.0 Total Bilirubin 0.2 AST 23 ALT 22 Alkaline Phosphatase 58 C-Reactive Protein 0.5 Total Protein 8.0 Albumin 4.3 Urine Color Yellow Urine Appearance Cloudy H Urine pH 7.0 Ur Specific [place] 1.013 Urine Protein Negative Urine Glucose (UA) Negative Urine Ketones Trace H Ur Blood (Man) Negative Urine Nitrate Positive H Urine Bilirubin Negative Urine Urobilinogen 0.2 Add Ur Microanalysis Reviewed Leukocyte Esterase Rfl 2+ H Urine RBC 0-2 Urine WBC 51-100 H Urine WBC Clumps Present H Ur Squamous Epith Cells Occasional Urine Bacteria 4+ Urine Casts 0-2 Urine Mucus Present POC Urine HCG, Qual Urine Opiates Screen Negative Urine Methadone Screen Negative Ur Barbiturates Screen Negative Ur Phencyclidine Scrn Negative Ur Amphetamine Screen Positive A U Benzodiazepines Scrn Negative Urine Cocaine Screen Negative U Cannabinoids Screen Negative RPR C. trachomatis (PCR) Not detected HIV 1&2 Ab/P24 Ag 4thGn Negative N. gonorrhoeae (PCR) Not detected T. vaginalis (PCR) Detected A Bact Vaginosis Panel Pending 03/15/24 03/15/24 00:34 06:20 WBC RBC Hgb Hct MCV MCH MCHC RDW Plt Count MPV Immature Gran % (Auto) Neut % (Auto) Lymph % (Auto) [place] % (Auto) Eos % (Auto) Baso % (Auto) Lymph # (Auto) [place] # (Auto) Eos # (Auto) Baso # (Auto) Abs Immat Gran (auto) Absolute Neuts (auto) Absolute Nucleated RBC Nucleated RBC % ESR PT INR APTT Sodium Potassium Chloride Carbon Dioxide Anion Gap BUN Creatinine Estim Creat Clear Calc Estimated GFR Glucose Lactic Acid Calcium Total Bilirubin AST ALT Alkaline Phosphatase C-Reactive Protein Total Protein Albumin Urine Color Urine Appearance Urine pH Ur Specific [place] Urine Protein Urine Glucose (UA) Urine Ketones Ur Blood (Man) Urine Nitrate Urine Bilirubin Urine Urobilinogen Add Ur Microanalysis Leukocyte Esterase Rfl Urine RBC Urine WBC Urine WBC Clumps Ur Squamous Epith Cells Urine Bacteria Urine Casts Urine Mucus POC Urine HCG, Qual Negative Urine Opiates Screen Urine Methadone Screen Ur Barbiturates Screen Ur Phencyclidine Scrn Ur Amphetamine Screen U Benzodiazepines Scrn Urine Cocaine Screen U Cannabinoids Screen RPR Pending C. trachomatis (PCR) HIV 1&2 Ab/P24 Ag 4thGn N. gonorrhoeae (PCR) T. vaginalis (PCR) Bact Vaginosis Panel Impressions Knee X-Ray 03/14/24 23:59 IMPRESSION: No acute osseous abnormality right knee. EKG personally reviewed and interpreted. Cardiology interpretation pending. Normal sinus rhythm with normal intervals. Assessment and Plan Assessment and plan (1) Cellulitis: Qualifiers: Laterality: right Site of cellulitis: extremity Site of cellulitis of extremity: lower extremity Qualified Code(s): L03.115 - Cellulitis of right lower limb Code(s): L03.90 - Cellulitis, unspecified Status: Acute (2) MRSA infection: Code(s): A49.02 - Methicillin resistant Staphylococcus aureus infection, unspecified site Status: Acute (3) Trichomonal vaginitis: Code(s): A59.01 - Trichomonal vulvovaginitis Status: Acute (4) Acute UTI: Code(s): N39.0 - Urinary tract infection, site not specified Status: Acute (5) Bipolar disorder: Qualifiers: Active/Remission status: remission status unspecified Qualified Code(s): F31.9 - Bipolar disorder, unspecified Code(s): F31.9 - Bipolar disorder, unspecified Status: Acute (6) Methamphetamine addiction: Code(s): F15.20 - Other stimulant dependence, uncomplicated Status: Acute (7) Positive RPR test: Code(s): 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, unspecified as early or late Status: Acute (8) Acute conjunctivitis of left eye: Qualifiers: Acute conjunctivitis type: bacterial Qualified Code(s): H10.32 - Unspecified acute conjunctivitis, left eye Code(s): H10.32 - Unspecified acute conjunctivitis, left eye Status: Acute Plan Patient been placed on vancomycin to treat her MRSA abscess/cellulitis of the knee. The patient's was slightly tachycardic and has had this persistent infection due to antibiotic noncompliance. The patient's right knee had been I indeed previously been on exam I suspect there may be an area of deeper abscess. Reported a CT of the right knee with contrast will add deeper infection. The patient does have a small abscess to lateral left knee that would also benefit from I&D. Await for CT imaging results to see how deep the infection is to determine whether not to consult General surgery versus orthopedic surgery depending on depth of infection and whether not the actual joint spaces involved. Given the patient's range of motion immobility am not suspicious of septic arthritis but she currently had could have involvement of pretibial bursa or patellar tendon. Will obtain blood cultures to rule out bacteremia. Although, I am slightly less suspicious of bacteremia given the patient is nontoxic appearance. Patient's urine is suggestive of a UTI. She is reporting suprapubic tenderness and pain when her bladder is slightly full. Urine cultures pending. Patient received empiric therapy with Rocephin which will be continued. Patient has Trichomonas vaginitis which is been treated with Flagyl. The patient's HIV screen was negative. RPR is reactive. Confirmatory testing for syphilis has been ordered and is pending. Patient's urine drug screen is positive for methamphetamines suggesting recent use. She admits to smoking meth 3 or 4 days ago. Patient will be provided with Education regarding importance of quitting and options for treatment as outpatient Patient does currently smoke tobacco. Nicotine patch will be provided. Tobacco cessation information provided. Patient will need to follow-up as outpatient regarding her psychiatric medications. I do not feel comfortable starting essentially new psychiatric medications with no guarantee of patient follow-up/continuity as an inpatient provider. I will give the patient a small dose of Xanax as needed for anxiety. The patient has acute conjunctival erythema and scleral edema of the left eye but she continues to rub both eyes incessantly. Given the fact that she has bacterial infection in other areas and was actively touching the knee at the time my evaluation in then reached up in rub her eyes antibiotic eyedrops in bilateral eyes for presumed bacterial conjunctivitis. Patient has been admitted as observation status. Quality VTE Prophylaxis VTE prophylaxis: pharmacologic ordered (Lovenox 40 mg subQ daily) Hospitalist [facility] Advance Care Plan I have confirmed that the patient's Advanced Care Plan is present, code status is documented, or surrogate decision maker is listed in patient medical record.: Yes Medication Reconciliation I have utilized all available resources to obtain, update and review the patients current medications (includes all prescriptions, OTC, herbals, cannabis, and nutritional supplements).: Yes
[2024-03-15 07:55] LABS: Rapid Plasma Reagin Reactive (NonReactive)
[2024-03-15] MEDS: ACETAMINOPHEN/ASPIRIN/CAFFEINE 250-250-65 MG TABLET 1 TABLET PO (08:45)
[2024-03-15] MEDS: metroNIDAZOLE 500 MG TABLET PO ×2 (08:46→16:55)
[2024-03-15] MEDS: NICOTINE (*PBKC) 21 MG PATCH 1 PATCH TRANSDERM (08:46)
[2024-03-15] MEDS: ENOXAPARIN 40 MG/0.4 ML SYRINGE SUB-Q (08:47)
[2024-03-15] MEDS: POLYMYXIN/TRIMETHOPRIM OPHTH 10 ML DROPS 1 DROP EACH EYE ×4 (08:51→20:25)
[2024-03-15] MEDS: oxyCODONE HCL (*CRX) 5 MG TAB IR PO ×3 (12:51→22:53)
[2024-03-15] MEDS: diphenhydrAMINE HCl INJ 50 MG/ML VIAL 25 MG IV PUSH (13:42)
[2024-03-15 14:00] VITALS: BP 102/72; PULSE 88; RESP 18; TEMP 37.3; O2SAT 98
--- NOTE | 2024-03-15 15:20 | P.PNIM_ITS ---
Progress Note: A&P Assessment and Plan (1) Cellulitis: Qualifiers: Laterality: right Site of cellulitis: extremity Site of cellulitis of extremity: lower extremity Qualified Code(s): L03.115 - Cellulitis of right lower limb Code(s): L03.90 - Cellulitis, unspecified Status: Acute (2) MRSA infection: Code(s): A49.02 - Methicillin resistant Staphylococcus aureus infection, unspecified site Status: Acute (3) Trichomonal vaginitis: Code(s): A59.01 - Trichomonal vulvovaginitis Status: Acute (4) Acute UTI: Code(s): N39.0 - Urinary tract infection, site not specified Status: Acute (5) Bipolar disorder: Qualifiers: Active/Remission status: remission status unspecified Qualified Code(s): F31.9 - Bipolar disorder, unspecified Code(s): F31.9 - Bipolar disorder, unspecified Status: Acute (6) Methamphetamine addiction: Code(s): F15.20 - Other stimulant dependence, uncomplicated Status: Acute (7) Positive RPR test: Code(s): 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, unspecified as early or late Status: Acute (8) Acute conjunctivitis of left eye: Qualifiers: Acute conjunctivitis type: bacterial Qualified Code(s): H10.32 - Unspecified acute conjunctivitis, left eye Code(s): H10.32 - Unspecified acute conjunctivitis, left eye Status: Acute Plan Assessment and plan Right knee erythema with swelling left knee swelling noted too CR right knee showed prepatellar and superficial infrapatella bursitis with skin thickening with trace joint effusion Obtain CT left knee continue Vancomycin Patient noted outpatient culture was positive for MRSA however she did not have insurance or money to buy antibiotics Blood culture pending Ortho consulted Vaginal Trichomoniasis patient was diagnosed outpatient HIV screen negative Continue Flagyl Patient has Trichomonas vaginitis which is been treated with Flagyl. The patient's HIV screen was negative. RPR is reactive. Confirmatory testing for syphilis has been ordered and is pending. Possible UTI urine culture pending continue Levaquin and follow up culture Meth Use patient noted she last used about a week prior to presentation UDS positive for meth Tobacco use Counseled about cessation smokes 2-3 sticks per day Possible conjunctivitis, left eye eye exam notable left eye congestion continue ophthalmic moxifloxacin ophthalmology referral/consult DVT prophyalxis on Sq lovenox Subjective Date/time seen: 03/15/24 15:20 Review of Systems Review of Systems: 12 systems were reviewed with pertinent positives and negatives per HPI. Except as documented in the HPI, all other systems were reviewed and are negative. Exam Narrative: General: alert and comfortable Eyes: EOMI, PERRLA ENT External ears normal, Neck is supple, no masses, Respiratory systems: Clear to auscultation Cardiovascular S1, S2, normal rhythm, no murmur, rub, or gallop; no thrill or palpable murmurs on palpation. Gastrointestinal: soft, non-tender, and non-distended abdomen with no masses; BS present Skin: no rash, lesions, ulcerations, subcutaneous nodules or induration Musculoskeletal: right knee swelling with erythema Neurologic: Alert and oriented x3, non focal Objective Data Vital Signs Vital Signs: Vital Signs - 24 hr 03/14/24 17:20 03/14/24 22:20 03/14/24 23:37 Temperature 98 F 97.7 F 98.1 F Pulse Rate 100 73 73 Respiratory Rate 20 20 17 Blood Pressure 117/83 116/71 112/66 Pulse Oximetry 98 96 100 Oxygen Delivery Room Air 03/15/24 01:21 03/15/24 02:53 03/15/24 05:01 Temperature 97.9 F 97.9 F 98.2 F Pulse Rate 69 84 71 Respiratory Rate 14 16 14 Blood Pressure 101/62 116/77 112/62 Pulse Oximetry 100 100 99 Oxygen Delivery 03/15/24 08:00 Temperature Pulse Rate Respiratory Rate Blood Pressure Pulse Oximetry Oxygen Delivery Room Air Intake/Output Intake/Output: Intake & Output 03/12/24 03/13/24 03/14/24 03/15/24 23:59 23:59 23:59 23:59 Intake Total 1000 1997 Output Total 0 Balance 1000 1997 Meds/Results Medications: Active Medications Generic Name Dose Route Start Last Admin Trade Name Freq PRN Reason Stop Dose Admin Acetaminophen 650 mg 03/15/24 01:18 Acetaminophen 325 Mg Tablet PO Q4H PRN Mild Pain (1-3) or Fever Acetaminophen/Aspirin/Caffeine 1 tablet 03/15/24 07:54 03/15/24 08:45 Acetaminophen/Aspirin/Caffeine 250-250-65 Mg Tablet PO 1 tablet Q6H PRN Administration Migraine Headache Alprazolam 0.25 mg 03/15/24 07:54 Alprazolam (*Crx) 0.25 Mg Tablet PO TID PRN Anxiety Calcium Carbonate 200 mg 03/15/24 07:58 Calcium Carbonate (Tums) 500 Mg (200 Mg Elemental) PO Q6H PRN Indigestion Enoxaparin Sodium 40 mg 03/15/24 09:00 03/15/24 08:47 Enoxaparin 40 Mg/0.4 Ml Syringe SUB-Q 40 mg DAILY ALANA Administration Vancomycin HCl 1,250 mg in 250 mls @ 166.667 mls/hr 03/15/24 02:00 03/15/24 13:47 Vancomycin 1,250 Mg/Ns 250 Ml IVPB 166.67 mls/hr Q12H ALANA Administration Ceftriaxone Sodium 1 gm in 50 mls @ 100 mls/hr 03/16/24 03:00 Rocephin 1 Gm/Ns 50 Ml IVPB Q24H ALANA Ibuprofen 400 mg 03/15/24 07:03 Ibuprofen 400 Mg Tablet PO Q6H PRN Pain 4-10 Metronidazole 500 mg 03/15/24 09:00 03/15/24 08:46 Metronidazole 500 Mg Tablet PO 03/24/24 08:59 500 mg BID ALANA Administration Nicotine 1 patch 03/15/24 09:00 03/15/24 08:46 Nicotine (*Pbkc) 21 Mg Patch TRANSDERM 1 patch QAM ALANA Administration Ondansetron HCl 4 mg 03/15/24 01:18 Ondansetron Inj 4 Mg/2 Ml Vial IV PUSH Q4H PRN Nausea Oxycodone HCl 5 mg 03/15/24 07:54 03/15/24 12:51 Oxycodone Hcl (*Crx) 5 Mg Tab Ir PO 5 mg Q4H PRN Administration Intractable pain Polymyxin/Trimethoprim Sulfate 1 drop 03/15/24 09:00 03/15/24 12:52 Polymyxin/Trimethoprim Ophth 10 Ml Drops EACH EYE 1 drop Q4HWA ALANA Administration Radiology Results: ITS Impressions Knee X-Ray 03/14/24 23:59 IMPRESSION: No acute osseous abnormality right knee. Knee CT 03/15/24 10:52 IMPRESSION: 1. Mild prepatellar and superficial infrapatellar bursitis with skin thickening. No drainable fluid collection. 2. Trace knee joint effusion. Labs Labs: Laboratory Results - last 24 hr 03/14/24 03/15/24 03/15/24 18:57 00:27 00:31 WBC 10.7 H RBC 4.90 Hgb 15.2 H Hct 44.7 MCV 91.2 MCH 31.0 MCHC 34.0 RDW 13.3 Plt Count 327 MPV 9.9 Immature Gran % (Auto) 0.5 Neut % (Auto) 78.6 H Lymph % (Auto) 11.[address] [place] % (Auto) 7.0 Eos % (Auto) 1.4 Baso % (Auto) 0.6 Lymph # (Auto) 1.27 [place] # (Auto) 0.8 H Eos # (Auto) 0.2 Baso # (Auto) 0.1 Abs Immat Gran (auto) 0.05 H Absolute Neuts (auto) 8.4 H Absolute Nucleated RBC 0.000 Nucleated RBC % 0.0 ESR 16 PT 12.9 INR 0.9 APTT 26.2 Sodium 138 Potassium 3.8 Chloride 102 Carbon Dioxide 25 Anion Gap 11 BUN 16 Creatinine 0.60 L Estim Creat Clear Calc 96 Estimated GFR > 60 Glucose 115 H Lactic Acid 0.8 Calcium 9.0 Total Bilirubin 0.2 AST 23 ALT 22 Alkaline Phosphatase 58 C-Reactive Protein 0.5 Total Protein 8.0 Albumin 4.3 Urine Color Yellow Urine Appearance Cloudy H Urine pH 7.0 Ur Specific [place] 1.013 Urine Protein Negative Urine Glucose (UA) Negative Urine Ketones Trace H Ur Blood (Man) Negative Urine Nitrate Positive H Urine Bilirubin Negative Urine Urobilinogen 0.2 Add Ur Microanalysis Reviewed Leukocyte Esterase Rfl 2+ H Urine RBC 0-2 Urine WBC 51-100 H Urine WBC Clumps Present H Ur Squamous Epith Cells Occasional Urine Bacteria 4+ Urine Casts 0-2 Urine Mucus Present POC Urine HCG, Qual Urine Opiates Screen Negative Urine Methadone Screen Negative Ur Barbiturates Screen Negative Ur Phencyclidine Scrn Negative Ur Amphetamine Screen Positive A U Benzodiazepines Scrn Negative Urine Cocaine Screen Negative U Cannabinoids Screen Negative RPR C. trachomatis (PCR) Not detected HIV 1&2 Ab/P24 Ag 4thGn Negative N. gonorrhoeae (PCR) Not detected T. vaginalis (PCR) Detected A 03/15/24 03/15/24 00:34 06:20 WBC RBC Hgb Hct MCV MCH MCHC RDW Plt Count MPV Immature Gran % (Auto) Neut % (Auto) Lymph % (Auto) [place] % (Auto) Eos % (Auto) Baso % (Auto) Lymph # (Auto) [place] # (Auto) Eos # (Auto) Baso # (Auto) Abs Immat Gran (auto) Absolute Neuts (auto) Absolute Nucleated RBC Nucleated RBC % ESR PT INR APTT Sodium Potassium Chloride Carbon Dioxide Anion Gap BUN Creatinine Estim Creat Clear Calc Estimated GFR Glucose Lactic Acid Calcium Total Bilirubin AST ALT Alkaline Phosphatase C-Reactive Protein Total Protein Albumin Urine Color Urine Appearance Urine pH Ur Specific [place] Urine Protein Urine Glucose (UA) Urine Ketones Ur Blood (Man) Urine Nitrate Urine Bilirubin Urine Urobilinogen Add Ur Microanalysis Leukocyte Esterase Rfl Urine RBC Urine WBC Urine WBC Clumps Ur Squamous Epith Cells Urine Bacteria Urine Casts Urine Mucus POC Urine HCG, Qual Negative Urine Opiates Screen Urine Methadone Screen Ur Barbiturates Screen Ur Phencyclidine Scrn Ur Amphetamine Screen U Benzodiazepines Scrn Urine Cocaine Screen U Cannabinoids Screen RPR Reactive A C. trachomatis (PCR) HIV 1&2 Ab/P24 Ag 4thGn N. gonorrhoeae (PCR) T. vaginalis (PCR) Quality VTE Prophylaxis VTE prophylaxis: pharmacologic ordered (Lovenox 40 mg subQ daily)
--- NOTE | 2024-03-15 16:08 | P.CONOP_ITS ---
Assessment and Plan Assessment and plan (1) Cellulitis: Qualifiers: Laterality: right Site of cellulitis: extremity Site of cellulitis of extremity: lower extremity Qualified Code(s): L03.115 - Cellulitis of right lower limb Code(s): L03.90 - Cellulitis, unspecified Status: Acute (2) Abscess of right knee: Code(s): L02.415 - Cutaneous abscess of right lower limb Status: Inactive Plan Patient has an open wound on the right proximal jay. This has been I&D twice and it grew MRSA since 03/08. She states it started about 5 days prior. Now she is getting a wound on the anterolateral left knee. She states this is how the one on her right leg started. She states the pain is getting worse and she feels ill. Patient also has a UTI, trichomonas, Bacterial vaginosis, syphilis, and conjunctivitis. She is currently on IV Vanc. Although she has some pain in the knee joint, it does not apear that the infection has spread to the joint. Mild swelling and effusion at bilateral knees. CT scan from 03/14/24 shows Mild prepatellar and superficial infrapatellar bursitis with skin thickening. Radiograph of the right knee shows normal joint spaces. Minimal patellofemoral changes. No drainable fluid collection. Trace joint effusion on the right knee. Continue IV antibiotics. Will discuss further with Dr. Maynard. Thank you for the consult. History of Present Illness HPI Consult date: 03/15/24 Chief complaint: Cellulitis Narrative: Patient admitted to the hospital for cellulitis. Patient is a 44 y/o female with a history of methamphetamine addiction, tobacco abuse asthma, bipolar, borderline personality disorder. She was seen in the urgent care 03/08 with a bug bite on the right knee. I&D was performed and patient was sent home on clindamycin. Patient did not fill prescription due to cost. She returned to the ER 03/10 with worsening infection in the right knee, ans infection in the eye. She was again prescribed antibiotics and did not fill them. I&D was positive for MRSA. Now complains of fever, headache, nausea, body aches, and photophobia. Patient has tested positive for bacterial vaginosis and trichomonas. She may also have a UTI. She has not been taking her psych medications. Review of Systems Review of Systems: All systems reviewed & are unremarkable except as noted in HPI and below PMFSH Past Medical History Medical History (Updated 03/15/24 @ 08:29 by Brooke Espinal DO) Asthma Bacterial vaginosis Bipolar disorder Depression High risk HPV infection Methamphetamine addiction Surgical History Surgical History H/O hemorrhoidectomy H/O sinus surgery H/O tubal ligation History of inguinal hernia repair, bilateral Previous section x3 Family History Family History Father Family history of bipolar disorder Family history of heart disease in male family member before age 55 Social History Social History (Updated 03/15/24 @ 08:10 by Brooke Espinal DO) Social History: Patient reports that she lives with her cousin in-law and that person's mother. She is finding it difficult to find reliable housing due to limited resources. She is on disability due to her psychiatric illness. She denies any heavy alcohol use but does drink alcohol on occasion in moderation. She does have a history of intermittent smoking of methamphetamine. She has smoked approximately half a pack of cigarettes per day since her late teens or early 20s. She has 3 sons ages 17, 18 and 23. She likes to play [employer]. Code status: Full code Surrogate decision maker: Moody (18-year-old son) phone number [phone] Smoking packs per day: 1 Smoking cigarettes per day: 20.0 Years smoked: 20 Smoking pack-years: 20.00 Smoking status: Current every day smoker Alcohol intake: current Alcohol use details: On occasion and in moderation Substance use type: marijuana and methamphetamine Do You Feel Safe in your Home?: Yes Lack of Transportation: YES Lack of Food: Often True Current Housing: I Do Not Have Housing Concerned About Future Housing: YES Difficulty Paying Gas/Electric Bills: Decline to Answer Difficulty Paying for Meds: YES Currently Unemployed: No Education: High School Diploma/GED Difficulty w/ Childcare or Family Care: No Spiritual care concerns: No Meds Home Medications and Allergies Home Medications Medication Instructions Recorded Confirmed Type No Home Medications 03/15/24 03/15/24 History Allergies Allergy/AdvReac Type Severity Reaction Status Date / Time clonazepam Allergy Unknown Unknown Verified 03/15/24 02:30 tramadol AdvReac Unknown NAUSEA Verified 03/15/24 02:30 Vital Signs Vital Signs - 24 hr 03/14/24 17:20 03/14/24 22:20 03/14/24 23:37 Temperature 98 F 97.7 F 98.1 F Pulse Rate 100 73 73 Respiratory Rate 20 20 17 Blood Pressure 117/83 116/71 112/66 Pulse Oximetry 98 96 100 Oxygen Delivery Room Air 03/15/24 01:21 03/15/24 02:53 03/15/24 05:01 Temperature 97.9 F 97.9 F 98.2 F Pulse Rate 69 84 71 Respiratory Rate 14 16 14 Blood Pressure 101/62 116/77 112/62 Pulse Oximetry 100 100 99 Oxygen Delivery 03/15/24 08:00 Temperature Pulse Rate Respiratory Rate Blood Pressure Pulse Oximetry Oxygen Delivery Room Air Exam Narrative: Normal weight 44 y/o female. Uncomfortable. No acute distress. Eyes with disch arge. Wound at the right proximal tibia with surrounding erythema. Warmth. Knee with normal range of motion. Pain with flexion. Ligaments intact. Small knee effusion. No warmth, redness at the right knee joint. Left knee with small abscess at the superior anterolateral knee. Minimal surrounding redness. Normal range of motion. No pain with flexion. Ligaments intact. Small knee effusion. No warmth, redness at the left knee joint. Previous scar at the proximal medial tibia from previous abscess. Neurovascularly intact. Pulses palpable. Light touch sensation intact. Results Labs 03/14/24 18:57 03/14/24 18:57 Labs: Abnormal lab results 03/14/24 03/15/24 03/15/24 Range/Units 18:57 00:27 00:31 WBC 10.7 H (4.5-10.0) K/mm3 Hgb 15.2 H (12.0-15.0) g/dL Neut % (Auto) 78.6 H (45.5-73.1) % Lymph % (Auto) 11.9 L (18.3-44.2) % [place] # (Auto) 0.8 H (0.1-0.6) K/mm3 Abs Immat Gran (auto) 0.05 H (0.00-0.031) K/mm3 Absolute Neuts (auto) 8.4 H (1.3-6.7) K/mm3 Creatinine 0.60 L (0.7-1.0) mg/dL Glucose 115 H (65-110) mg/dL Urine Appearance Cloudy H (Clear) Urine Ketones Trace H (Negative) mg/dL Urine Nitrate Positive H (Negative) Leukocyte Esterase Rfl 2+ H (Negative) JAI/UL Urine WBC 51-100 H (0-3) /hpf Urine WBC Clumps Present H (None) /HPF Ur Amphetamine Screen Positive A (Negative) RPR (NonReactive) T. vaginalis (PCR) Detected A (NOT DETECTE) 03/15/24 Range/Units 06:20 WBC (4.5-10.0) K/mm3 Hgb (12.0-15.0) g/dL Neut % (Auto) (45.5-73.1) % Lymph % (Auto) (18.3-44.2) % [place] # (Auto) (0.1-0.6) K/mm3 Abs Immat Gran (auto) (0.00-0.031) K/mm3 Absolute Neuts (auto) (1.3-6.7) K/mm3 Creatinine (0.7-1.0) mg/dL Glucose (65-110) mg/dL Urine Appearance (Clear) Urine Ketones (Negative) mg/dL Urine Nitrate (Negative) Leukocyte Esterase Rfl (Negative) JAI/UL Urine WBC (0-3) /hpf Urine WBC Clumps (None) /HPF Ur Amphetamine Screen (Negative) RPR Reactive A (NonReactive) T. vaginalis (PCR) (NOT DETECTE) H & H 03/14/24 Range/Units 18:57 Hgb 15.2 H (12.0-15.0) g/dL Hct 44.7 (37.0-47.0) % Coagulation 03/14/24 Range/Units 18:57 INR 0.9 All other labs normal.
[2024-03-15] MEDS: levoFLOXacin 750 MG/D5W 150 ML 750 MG/150 ML BAG 100 MG IVPB (16:54)
[2024-03-15] MEDS: ALPRAZolam (*CRX) 0.25 MG TABLET PO (20:17)
[2024-03-15 20:22] VITALS: BP 97/56; PULSE 83; RESP 16; TEMP 36.4; O2SAT 95
[2024-03-15] MEDS: MOXIFLOXACIN HCL 0.5% 3 ML OPHTH SOLN 1 DROP EACH EYE (22:53)
[2024-03-16] MEDS: VANCOMYCIN 1,250 MG/NS 250 ML 1,250 MG/250 ML BAG 167 MG IVPB (01:07)
[2024-03-16 05:00] VITALS: BP 110/79; PULSE 88; RESP 14; TEMP 36.7; O2SAT 96
[2024-03-16] MEDS: oxyCODONE HCL (*CRX) 5 MG TAB IR PO (06:56)
[2024-03-16] MEDS: POLYMYXIN/TRIMETHOPRIM OPHTH 10 ML DROPS 1 DROP EACH EYE ×3 (06:57→13:30)
[2024-03-16] MEDS: MOXIFLOXACIN HCL 0.5% 3 ML OPHTH SOLN 1 DROP EACH EYE ×2 (06:59→13:29)
[2024-03-16 07:26] LABS: Basophils Absolute Auto 0.1 K/mm3 (0.0-0.1); Basophils Percent Auto 0.8 % (0.2-1.2); Eosinophils Absolute Auto 0.1 K/mm3 (0-0.3); Hemoglobin 14.2 g/dL (12.0-15.0); Immature Granulocyte Absolute 0.05 K/mm3 (0.00-0.031); Immature Granulocyte Percent A 0.8 % (0-0.5); Lymphocytes Absolute Auto 1.41 K/mm3 (0.9-3.2); Lymphocytes Percent Auto 21.7 % (18.3-44.2); Mean Corpuscular HGB Conc 33.8 g/dl (32-36); Mean Corpuscular Hemoglobin 31.6 pg (26-34); Mean Corpuscular Volume 93.3 fl (80-100); Mean Platelet Volume 10.2 fl (7.4-10.4); Monocytes Absolute Auto 0.5 K/mm3 (0.1-0.6); Monocytes Percent Auto 7.7 % (2.6-8.5); Neutrophils Absolute Auto 4.4 K/mm3 (1.3-6.7); Platelet Count Result 272 k/mm3 (150-375); Red Cell Distribution Width 13.3 % (11.5-14.5); White Blood Count 6.5 K/mm3 (4.5-10.0)
[2024-03-16 07:51] LABS: Alanine Aminotransferase 16 U/L (6-35); Albumin Level 3.8 g/dL (3.5-5.1); Alkaline Phosphatase 54 U/L (38-126); Anion Gap 8 mmol/L (4-12); Aspartate Amino Transferase 18 U/L (14-36); Bilirubin,Total 0.1 mg/dL (0.2-1.3); Blood Urea Nitrogen 12 mg/dL (7-17); Calcium 8.9 mg/dL (8.4-10.2); Carbon Dioxide 24 mmol/L (22-30); Chloride 106 mmol/L (98-107); Estimated CRCL calculation 96 ml/min; Estimated Glomerular Filt Rate > 60; Glucose 92 mg/dL (65-110); Potassium 4.3 mmol/L (3.4-5.0); Sodium 138 mmol/L (137-145)
[2024-03-16] MEDS: ENOXAPARIN 40 MG/0.4 ML SYRINGE SUB-Q (09:08)
[2024-03-16] MEDS: metroNIDAZOLE 500 MG TABLET PO (09:08)
[2024-03-16] MEDS: NICOTINE (*PBKC) 21 MG PATCH 1 PATCH TRANSDERM (09:08)
[2024-03-16] MEDS: IBUPROFEN 400 MG TABLET PO (13:34)
--- NOTE | 2024-03-16 13:59 | P.PNIM_ITS ---
Progress Note: A&P Assessment and Plan (1) Cellulitis: Qualifiers: Laterality: right Site of cellulitis: extremity Site of cellulitis of extremity: lower extremity Qualified Code(s): L03.115 - Cellulitis of right lower limb Code(s): L03.90 - Cellulitis, unspecified Status: Acute (2) MRSA infection: Code(s): A49.02 - Methicillin resistant Staphylococcus aureus infection, unspecified site Status: Acute (3) Trichomonal vaginitis: Code(s): A59.01 - Trichomonal vulvovaginitis Status: Acute (4) Acute UTI: Code(s): N39.0 - Urinary tract infection, site not specified Status: Acute (5) Bipolar disorder: Qualifiers: Active/Remission status: remission status unspecified Qualified Code(s): F31.9 - Bipolar disorder, unspecified Code(s): F31.9 - Bipolar disorder, unspecified Status: Acute (6) Methamphetamine addiction: Code(s): F15.20 - Other stimulant dependence, uncomplicated Status: Acute (7) Positive RPR test: Code(s): 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 cc: ~ Progress Note: A&P Assessment and Plan (1) Cellulitis: Qualifiers: Laterality: right Site of cellulitis: extremity Site of cellulitis of extremity: lower extremity Qualified Code(s): L03.115 - Cellulitis of right lower limb Code(s): L03.90 - Cellulitis, unspecified Status: Acute (2) MRSA infection: Code(s): A49.02 - Methicillin resistant Staphylococcus aureus infection, unspecified site Status: Acute (3) Trichomonal vaginitis: Code(s): A59.01 - Trichomonal vulvovaginitis Status: Acute (4) Acute UTI: Code(s): N39.0 - Urinary tract infection, site not specified Status: Acute (5) Bipolar disorder: Qualifiers: Active/Remission status: remission status unspecified Qualified Code(s): F31.9 - Bipolar disorder, unspecified Code(s): F31.9 - Bipolar disorder, unspecified Status: Acute (6) Methamphetamine addiction: Code(s): F15.20 - Other stimulant dependence, uncomplicated Status: Acute (7) Positive RPR test: Code(s): 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, unspecified as early or late Status: Acute (8) Acute conjunctivitis of left eye: Qualifiers: Acute conjunctivitis type: bacterial Qualified Code(s): H10.32 - Unspecified acute conjunctivitis, left eye Code(s): H10.32 - Unspecified acute conjunctivitis, left eye Status: Acute Plan Assessment and plan Right knee erythema with swelling left knee swelling noted too CR right knee showed prepatellar and superficial infrapatella bursitis with skin thickening with trace joint effusion Obtain CT left knee continue Vancomycin Patient noted outpatient culture was positive for MRSA however she did not have insurance or money to buy antibiotics Blood culture pending Ortho evaluated and noted no knee joint involvement and recommended continuing abx Vaginal Trichomoniasis patient was diagnosed outpatient HIV screen negative Continue Flagyl Confirmatory testing for syphilis has been ordered and is pending. Possible UTI urine culture pending continue Rocephin and follow up culture Meth Use patient noted she last used about a week prior to presentation UDS positive for meth Tobacco use Counseled about cessation smokes 2-3 sticks per day Possible conjunctivitis, left eye pain and visual loss improving eye exam notable left eye congestion continue ophthalmic moxifloxacin ophthalmology consult from [facility] and [facility], awaiting response DVT prophylaxis on Sq lovenox Subjective Date/time seen: 03/16/24 13:59 Interval history: Patient comfortable at bedside and still complains of left eye pain and visual loss, however noted some improvement Awaiting ophthalmology response from both [facility] and [facility] Review of Systems Review of Systems: 12 systems were reviewed with pertinent positives and negatives per HPI. Except as documented in the HPI, all other systems were reviewed and are negative. Exam Narrative: General: alert and comfortable Eyes: EOMI, PERRLA ENT External ears normal, Neck is supple, no masses, Respiratory systems: Clear to auscultation Cardiovascular S1, S2, normal rhythm, no murmur, rub, or gallop; no thrill or palpable murmurs on palpation. Gastrointestinal: soft, non-tender, and non-distended abdomen with no masses; BS present Skin: no rash, lesions, ulcerations, subcutaneous nodules or induration Musculoskeletal: right knee swelling with erythema Neurologic: Alert and oriented x3, non focal Const: Other: Disheveled, appears older than stated age, is a well-nourished HENMT: Other: Mucous membranes are dry, no oral pharyngeal erythema, edentulous in upper and lower jaw Eyes: Other: Pupils are equal and reactive, no scleral icterus, marked chemosis and erythema of conjunctiva Neck: Other: No JVD, no lymphadenopathy Resp: Other: Decreased breath sounds at the bases, no increased work of breathing Cardio: Other: Regular rate, regular rhythm, 2+ bilateral radial pedal pulses GI: Other: Soft, nontender, nondistended, positive bowel sounds Skin: Other: No pallor, non jaundice, erythema overlying the anterior proximal tibia and lower knee Neuro: Other: Alert oriented, speech is clear, no facial asymmetry, no tremor, no localizing neurologic deficits noted during the course of conversation, stable gait Extrem: Other: Mild clubbing of nail beds, erythema and induration of the skin right knee, area is open from area of I and D with serosanguineous drainage, small area of eryth gregoria and small pustule to the left lateral leg at the distal quadriceps just above the knee, less than a nickel in size Psych: Other: Initially on on evaluation the patient was resting comfortably one-sided reduced myself the patient became anxious, tearful, histrionic, poor judgment and insight Objective Data Vital Signs Vital Signs: Vital Signs - 24 hr 03/15/24 14:00 03/15/24 20:22 03/16/24 05:00 Temperature 99.2 F 97.6 F 98.1 F Pulse Rate 88 83 88 Respiratory Rate 18 16 14 Blood Pressure 102/72 97/56 L 110/79 Pulse Oximetry 98 95 96 Oxygen Delivery 03/16/24 08:00 Temperature Pulse Rate Respiratory Rate Blood Pressure Pulse Oximetry Oxygen Delivery Room Air Intake/Output Intake/Output: Intake & Output 03/13/24 03/14/24 03/15/24 03/16/24 23:59 23:59 23:59 23:59 Intake Total 1000 3138 762 Output Total 0 Balance 1000 3138 762 Meds/Results Medications: Active Medications Generic Name Dose Route Start Last Admin Trade Name Freq PRN Reason Stop Dose Admin Acetaminophen 650 mg 03/15/24 01:18 Acetaminophen 325 Mg Tablet PO Q4H PRN Mild Pain (1-3) or Fever Acetaminophen/Aspirin/Caffeine 1 tablet 03/15/24 07:54 03/15/24 08:45 Acetaminophen/Aspirin/Caffeine 250-250-65 Mg Tablet PO 1 tablet Q6H PRN Administration Migraine Headache Alprazolam 0.25 mg 03/15/24 07:54 03/15/24 20:17 Alprazolam (*Crx) 0.25 Mg Tablet PO 0.25 mg TID PRN Administration Anxiety Calcium Carbonate 200 mg 03/15/24 07:58 Calcium Carbonate (Tums) 500 Mg (200 Mg Elemental) PO Q6H PRN Indigestion Enoxaparin Sodium 40 mg 03/15/24 09:00 03/16/24 09:08 Enoxaparin 40 Mg/0.4 Ml Syringe SUB-Q 40 mg DAILY ALANA Administration Vancomycin HCl 1,250 mg in 250 mls @ 166.667 mls/hr 03/15/24 02:00 03/16/24 01:07 Vancomycin 1,250 Mg/Ns 250 Ml IVPB 167 mls/hr Q12H ALANA Administration Ibuprofen 400 mg 03/15/24 07:03 03/16/24 13:34 Ibuprofen 400 Mg Tablet PO 400 mg Q6H PRN Administration Pain 4-10 Metronidazole 500 mg 03/15/24 09:00 03/16/24 09:08 Metronidazole 500 Mg Tablet PO 03/24/24 08:59 500 mg BID ALANA Administration Moxifloxacin HCl 1 drop 03/15/24 22:00 03/16/24 13:29 Moxifloxacin Hcl 0.5% 3 Ml Ophth Soln EACH EYE 1 drop Q8HR ALANA Administration Nicotine 1 patch 03/15/24 09:00 03/16/24 09:08 Nicotine (*Pbkc) 21 Mg Patch TRANSDERM 1 patch QAM ALANA Administration Ondansetron HCl 4 mg 03/15/24 01:18 Ondansetron Inj 4 Mg/2 Ml Vial IV PUSH Q4H PRN Nausea Oxycodone HCl 5 mg 03/15/24 07:54 03/16/24 06:56 Oxycodone Hcl (*Crx) 5 Mg Tab Ir PO 5 mg Q4H PRN Administration Intractable pain Polymyxin/Trimethoprim Sulfate 1 drop 03/15/24 09:00 03/16/24 13:30 Polymyxin/Trimethoprim Ophth 10 Ml Drops EACH EYE 1 drop Q4HWA ALANA Administration Radiology Results: ITS Impressions Knee X-Ray 03/14/24 23:59 IMPRESSION: No acute osseous abnormality right knee. Knee CT 03/16/24 08:11 IMPRESSION: 1. Prepatellar soft tissue swelling suspicious for cellulitis and/or prepatellar bursitis. 2. Very small Milner's cyst. No knee joint effusion. Labs Labs: Laboratory Results - last 24 hr 03/16/24 07:09 WBC 6.5 RBC 4.50 Hgb 14.2 Hct 42.0 MCV 93.3 MCH 31.6 MCHC 33.8 RDW 13.3 Plt Count 272 MPV 10.2 Immature Gran % (Auto) 0.8 H Neut % (Auto) 67.0 Lymph % (Auto) 21.7 Esmeralda % (Auto) 7.7 Eos % (Auto) 2.0 Baso % (Auto) 0.8 Lymph # (Auto) 1.41 Esmeralda # (Auto) 0.5 Eos # (Auto) 0.1 Baso # (Auto) 0.1 Abs Immat Gran (auto) 0.05 H Absolute Neuts (auto) 4.4 Absolute Nucleated RBC 0.000 Nucleated RBC % 0.0 Sodium 138 Potassium 4.3 Chloride 106 Carbon Dioxide 24 Anion Gap 8 BUN 12 Creatinine 0.60 L Estim Creat Clear Calc 96 Estimated GFR > 60 Glucose 92 Calcium 8.9 Magnesium 2.0 Total Bilirubin 0.1 L AST 18 ALT 16 Alkaline Phosphatase 54 Total Protein 7.0 Albumin 3.8 Quality VTE Prophylaxis VTE prophylaxis: pharmacologic ordered (Lovenox 40 mg subQ daily)
[2024-03-16 14:00] VITALS: BP 105/63; PULSE 100; RESP 14; TEMP 37.3; O2SAT 98
[2024-03-16 14:10] LABS: Vancomycin Trough 5.6 ug/mL (10.0-20.0)
--- NOTE | 2024-03-16 15:31 | P.DS_ITS ---
DS: Admitting Diagnosis Discharge Date 03/16/24 Admitting Diagnosis knee swelling and pain DS: Discharge Diagnosis Discharge Diagnosis (1) Acute conjunctivitis of left eye: Qualifiers: Acute conjunctivitis type: bacterial Qualified Code(s): H10.32 - Unspecified acute conjunctivitis, left eye Code(s): H10.32 - Unspecified acute conjunctivitis, left eye Status: Acute (2) Cellulitis: Qualifiers: Laterality: right Site of cellulitis: extremity Site of cellulitis of extremity: lower extremity Qualified Code(s): L03.115 - Cellulitis of right lower limb Code(s): L03.90 - Cellulitis, unspecified Status: Acute DS: Summary Hospital Course Hospital Course: 44-year-old female with past medical history of methamphetamine addiction, tobacco abuse, asthma, bipolar disorder, borderline personality disorder and depression resulting in disability who presented to the ER via EMS due to being called for culture result of MRSA positive infection. The patient had been evaluated at [facility] on the due to a suspected bug bite to the right anterior knee with increasing redness pain. She was given prescription for clindamycin and mupirocin ointment. Patient reports that she did not fill the medications. She then came to the ER on the for similar symptoms she had been squeezing the area of infection. She had also noted developing irritation of the left eye with erythema and crusting on her eyelashes that started on the . She she thinks that she spread the infection from her knee to her eye. Her knee was I indeed on the and sent for culture which grew out MRSA. She was again prescribed clindamycin which she did not fill. She then presented to the ER again last night with now an open wound to the knee that had been I indeed. She reported subjective fever for couple of days, headache, nausea and generalized body aches. She stated today that she did not ever feel the medications because they cause 200 dollars and that she would not be able to get the medications regardless until the 20 of March when her check arrives. The patient's did have minimal leukocytosis noted on labs in the ER but was afebrile and has been so since admission. She is nontoxic-appearing. The patient states that she did have a similar left anterior jay this past summer and has a large scar just inferior to her left knee. She thought that infection was also due to a bug bite. The patient that she recently had sex with the partner in did not use protect ion. Since that time she has noticed increased vaginal discharge and vaginal irritation. She was concerned that given the skin infections that she was having that she may have HIV. Her HIV screen was negative. ER provider performed pelvic exam which was positive for Trichomonas. Her HIV testing was negative. Her UA was positive for trace ketones, nitrates, 2+ esterase and 50- 100 wbc's with white blood cell clumps present and 4+ bacteria. She received Rocephin and Flagyl and vancomycin in the ER. When the patient had presented to urgent care she also had requested refills on her psychiatric medications and asthma medications. However she did not know what her medications were or with her doses were. She cannot recall how long it is been since she was on her psychiatric medications in there is no documentation of which medication she was on in the electronic external pharmacy record. She states that she is supposed to see a new doctor in April. Patient was evaluated by ortho and noted that she has cellulitis of the knees and no Time Spent with Patient Time attestation: Total time spent providing and/or coordinating discharge services: DS: Data Data Completed and Pending Labs on day of discharge: Labs from last 24 hours 03/16/24 03/16/24 12:59 07:09 WBC 6.5 RBC 4.50 Hgb 14.2 Hct 42.0 MCV 93.3 MCH 31.6 MCHC 33.8 RDW 13.3 Plt Count 272 MPV 10.2 Immature Gran % (Auto) 0.8 H Neut % (Auto) 67.0 Lymph % (Auto) 21.7 [place] % (Auto) 7.7 Eos % (Auto) 2.0 Baso % (Auto) 0.8 Lymph # (Auto) 1.41 [place] # (Auto) 0.5 Eos # (Auto) 0.1 Baso # (Auto) 0.1 Abs Immat Gran (auto) 0.05 H Absolute Neuts (auto) 4.4 Absolute Nucleated RBC 0.000 Nucleated RBC % 0.0 Sodium 138 Potassium 4.3 Chloride 106 Carbon Dioxide 24 Anion Gap 8 BUN 12 Creatinine 0.60 L Estim Creat Clear Calc 96 Estimated GFR > 60 Glucose 92 Calcium 8.9 Magnesium 2.0 Total Bilirubin 0.1 L AST 18 ALT 16 Alkaline Phosphatase 54 Total Protein 7.0 Albumin 3.8 Vancomycin Trough 5.6 L Preliminary micro results at discharge 03/14/24 23:18 Blood Culture - Preliminary Blood 03/14/24 18:57 Blood Culture - Preliminary Blood Discharge Plan Discharge Consulting providers: Silvio Maynard Patient Disposition: Acute Care Hospital Patient Instructions: How to Stop Smoking (DC), Pain Management (DC) Discharge Medications: No Action No Home Medications Date of admission: 03/16/24 09:03 Primary Care Provider: UNKNOWN,DOCTOR Admitting Provider: Brooke Espinal Attending physician on admission: Brooke Espinal Condition: Stable
--- NOTE | 2024-03-16 15:36 | PM.TDS ---
Transfer Discharge Sum: Prov Provider Date of admission: 03/16/24 09:03 Primary care physician: UNKNOWN,DOCTOR Admitting clinician: Brooke Espinal DO Consults: 03/15/24 Consult to Physician Routine Comment: spoke to office @[phone] (,us) Consulting Provider: Silvio Maynard call worker person/MD group to consult: Orthopedic Reason for consultation: prepatella bursities Has provider been notified: Yes DS: Admitting Diagnosis Discharge Date 03/16/24 Admitting Diagnosis Bilateral knee swelling adn redness DS: Discharge Diagnosis Discharge Diagnosis (1) Acute conjunctivitis of left eye: Qualifiers: Acute conjunctivitis type: bacterial Qualified Code(s): H10.32 - Unspecified acute conjunctivitis, left eye Code(s): H10.32 - Unspecified acute conjunctivitis, left eye Status: Acute (2) Positive RPR test: Code(s): 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, unspecified as early or late Status: Acute (3) MRSA infection: Code(s): A49.02 - Methicillin resistant Staphylococcus aureus infection, unspecified site Status: Acute (4) Cellulitis: Qualifiers: Laterality: right Site of cellulitis: extremity Site of cellulitis of extremity: lower extremity Qualified Code(s): L03.115 - Cellulitis of right lower limb Code(s): L03.90 - Cellulitis, unspecified Status: Acute Plan 44-year-old female with past medical history of methamphetamine addiction, tobacco abuse, asthma, bipolar disorder, borderline personality disorder and depression resulting in disability who presented to the ER via EMS due to being called for culture result of MRSA positive infection. The patient had been evaluated at [facility] on the due to a suspected bug bite to the right anterior knee with increasing redness pain. She was given prescription for clindamycin and mupirocin ointment. Patient reports that she did not fill the medications. She then came to the ER on the for similar symptoms she had been squeezing the area of infection. She had also noted developing irritation of the left eye with erythema and crusting on her eyelashes that started on the . She she thinks that she spread the infection from her knee to her eye. Her knee was I indeed on the and sent for culture which grew out MRSA. She was again prescribed clindamycin which she did not fill. She then presented to the ER again last night with now an open wound to the knee that had been I indeed. She reported subjective fever for couple of days, headache, nausea and generalized body aches. She stated today that she did not ever feel the medications because they cause 200 dollars and that she would not be able to get the medications regardless until the 20 of March when her check arrives. The patient's did have minimal leukocytosis noted on labs in the ER but was afebrile and has been so since admission. She is nontoxic-appearing. The patient states that she did have a similar left anterior jay this past summer and has a large scar just inferior to her left knee. She thought that infection was also due to a bug bite. The patient that she recently had sex with the partner in did not use protection. Since that time she has noticed increased vaginal discharge and vaginal irritation. She was concerned that given the skin infections that she was having that she may have HIV. Her HIV screen was negative. ER provider performed pelvic exam which was positive for Trichomonas. Her HIV testing was negative. Her UA was positive for trace ketones, nitrates, 2+ esterase and 50-100 wbc's with white blood cell clumps present and 4+ bacteria. She received Rocephin and Flagyl and vancomycin in the ER. When the patient had presented to urgent care she also had requested refills on her psychiatric medications and asthma medications. However she did not know what her medications were or with her doses were. She cannot recall how long it is been since she was on her psychiatric medications in there is no documentation of which medication she was on in the electronic external pharmacy record. She states that she is supposed to see a new doctor in April. Patient was evaluated by ortho and noted that she has cellulitis of the knees and patient will continue Vanc for now. Prior wound culture on 03/10/24 positive for MRSA sensitive to Vanc, levaquin and Doxycycline. Plan is to discharge on PO levaquin to complete 14 days today of Abx. Currently on day 2 vancomycin. Patient also reported left eye pain with movement and partial loss of vision. ?Gonorrhea r/o endophthalmitis vs orbtial myositis COntinune IV Vanc and Rocephin, Also on Ophthalmic Moxifloxacin. consulted with Ophthalmology at [facility] who referred me to ER, i discussed wtcatherine Campbell through the transfer center who accepted patient to transfer to the ER. bacterial vaginosis on flagyl 500mg bid x 7 days Positive RPR ?Syphilis T pallidum antibodies and RPR titer pending Patient noted she does not have insurance as such effort shoudl be made to provide her prescription assistance on discharge so she can complete her antibiotics. I appreciate help from the [facility] providers in accepting this patient in transfer. Assessment and Plan (1) Cellulitis: Qualifiers: Laterality: right Site of cellulitis: extremity Site of cellulitis of extremity: lower extremity Qualified Code(s): L03.115 - Cellulitis of right lower limb Code(s): L03.90 - Cellulitis, unspecified Status: Acute (2) MRSA infection: Code(s): A49.02 - Methicillin resistant Staphylococcus aureus infection, unspecified site Status: Acute (3) Trichomonal vaginitis: Code(s): A59.01 - Trichomonal vulvovaginitis Status: Acute (4) Acute UTI: Code(s): N39.0 - Urinary tract infection, site not specified Status: Acute (5) Bipolar disorder: Qualifiers: Active/Remission status: remission status unspecified Qualified Code(s): F31.9 - Bipolar disorder, unspecified Code(s): F31.9 - Bipolar disorder, unspecified Status: Acute (6) Methamphetamine addiction: Code(s): F15.20 - Other stimulant dependence, uncomplicated Status: Acute (7) Positive RPR test: Code(s): 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, unspecified as early or late Status: Acute (8) Acute conjunctivitis of left eye: Qualifiers: Acute conjunctivitis type: bacterial Qualified Code(s): H10.32 - Unspecified acute conjunctivitis, left eye Code(s): H10.32 - Unspecified acute conjunctivitis, left eye Status: Acute Plan Assessment and plan Right knee erythema with swelling left knee swelling noted too CR right knee showed prepatellar and superficial infrapatella bursitis with skin thickening with trace joint effusion Obtain CT left knee continue Vancomycin Patient noted outpatient culture was positive for MRSA however she did not have insurance or money to buy antibiotics Blood culture pending Ortho evaluated and noted no knee joint involvement and recommended continuing abx Vaginal Trichomoniasis patient was diagnosed outpatient HIV screen negative Continue Flagyl x7 days possible syphilis RPR positive, pendign FTA and RPR titer monitor Possible UTI urine culture pending continue Rocephin and follow up culture Meth Use patient noted she last used about a week prior to presentation UDS positive for meth Tobacco use Counseled about cessation smokes 2-3 sticks per day left eye pain and visual loss Endophthamitis vs orbital myositis vs acute conjustivitis noted some improvement eye exam notable left eye congestion continue ophthalmic moxifloxacin, continue Rocpehin and Vanc Transferred to [facility] for higher lvel of care as noted above Transfer Discharge Sum: Med Medications Active and Home Medications: Home Medications No Home Medications 03/15/24 [History Confirmed 03/15/24] Active Medications Acetaminophen (Acetaminophen 325 Mg Tablet) 650 mg PO Q4H PRN PRN Reason: Mild Pain (1-3) or Fever Acetaminophen/Aspirin/Caffeine (Acetaminophen/Aspirin/Caffeine 250-250-65 Mg Tablet) 1 tablet PO Q6H PRN PRN Reason: Migraine Headache Last Admin: 03/15/24 08:45 Dose: 1 tablet Alprazolam (Alprazolam (*Crx) 0.25 Mg Tablet) 0.25 mg PO TID PRN PRN Reason: Anxiety Last Admin: 03/15/24 20:17 Dose: 0.25 mg Calcium Carbonate (Calcium Carbonate (Tums) 500 Mg (200 Mg Elemental)) 200 mg PO Q6H PRN PRN Reason: Indigestion Enoxaparin Sodium (Enoxaparin 40 Mg/0.4 Ml Syringe) 40 mg SUB-Q DAILY [facility] Last Admin: 03/16/24 09:08 Dose: 40 mg Vancomycin HCl (Vancomycin 1,500 Mg/Ns 500 Ml) 1,500 mg in 500 mls @ 250 mls/hr IVPB Q8HR [facility] Last Admin: 03/16/24 14:58 Dose: Not Given Ibuprofen (Ibuprofen 400 Mg Tablet) 400 mg PO Q6H PRN PRN Reason: Pain 4-10 Last Admin: 03/16/24 13:34 Dose: 400 mg Metronidazole (Metronidazole 500 Mg Tablet) 500 mg PO BID [facility] Stop: 03/24/24 08:59 Last Admin: 03/16/24 09:08 Dose: 500 mg Moxifloxacin HCl (Moxifloxacin Hcl 0.5% 3 Ml Ophth Soln) 1 drop EACH EYE Q8HR [facility] Last Admin: 03/16/24 13:29 Dose: 1 drop Nicotine (Nicotine (*Pbkc) 21 Mg Patch) 1 patch TRANSDERM QAM [facility] Last Admin: 03/16/24 09:08 Dose: 1 patch Ondansetron HCl (Ondansetron Inj 4 Mg/2 Ml Vial) 4 mg IV PUSH Q4H PRN PRN Reason: Nausea Oxycodone HCl (Oxycodone Hcl (*Crx) 5 Mg Tab Ir) 5 mg PO Q4H PRN PRN Reason: Intractable pain Last Admin: 03/16/24 06:56 Dose: 5 mg Polymyxin/Trimethoprim Sulfate (Polymyxin/Trimethoprim Ophth 10 Ml Drops) 1 [facility] Last Admin: 03/16/24 13:30 Dose: 1 drop Transfer Discharge Sum: Hosp Hospital Course Hospital course: Diana Bowles is a 44 year old female Time Spent with Patient Time attestation: Total time spent providing and/or coordinating transfer services: DS: Data Data Completed and Pending Labs on day of discharge: Labs from last 24 hours 03/16/24 03/16/24 12:59 07:09 WBC 6.5 RBC 4.50 Hgb 14.2 Hct 42.0 MCV 93.3 MCH 31.6 MCHC 33.8 RDW 13.3 Plt Count 272 MPV 10.2 Immature Gran % (Auto) 0.8 H Neut % (Auto) 67.0 Lymph % (Auto) 21.7 [place] % (Auto) 7.7 Eos % (Auto) 2.0 Baso % (Auto) 0.8 Lymph # (Auto) 1.41 [place] # (Auto) 0.5 Eos # (Auto) 0.1 Baso # (Auto) 0.1 Abs Immat Gran (auto) 0.05 H Absolute Neuts (auto) 4.4 Absolute Nucleated RBC 0.000 Nucleated RBC % 0.0 Sodium 138 Potassium 4.3 Chloride 106 Carbon Dioxide 24 Anion Gap 8 BUN 12 Creatinine 0.60 L Estim Creat Clear Calc 96 Estimated GFR > 60 Glucose 92 Calcium 8.9 Magnesium 2.0 Total Bilirubin 0.1 L AST 18 ALT 16 Alkaline Phosphatase 54 Total Protein 7.0 Albumin 3.8 Vancomycin Trough 5.6 L Preliminary micro results at discharge 03/14/24 23:18 Blood Culture - Preliminary Blood 03/14/24 18:57 Blood Culture - Preliminary Blood
--- NOTE | 2024-03-16 16:14 | PM.CNOR ---
Assessment and Plan Assessment and plan (1) MRSA infection: Code(s): A49.02 - Methicillin resistant Staphylococcus aureus infection, unspecified site Status: Acute (2) Cellulitis: Qualifiers: Laterality: right Site of cellulitis: extremity Site of cellulitis of extremity: lower extremity Qualified Code(s): L03.115 - Cellulitis of right lower limb Code(s): L03.90 - Cellulitis, unspecified Status: Acute Plan Patient seen and examined. Agree with the documentation 03/16/24 provided by physician medical technician assistant Azul Knox PA-C. Plan of care discussed. Continued conservative management with IV antibiotics. Will follow closely. No indication for surgical debridement at this time. Thank you for the consultation. History of Present Illness HPI Consult date: 03/16/24 Chief complaint: Cellulitis PMFSH Past Medical History Medical History (Updated 03/15/24 @ 08:29 by Brooke Espinal DO) Asthma Bacterial vaginosis Bipolar disorder Depression High risk HPV infection Methamphetamine addiction Surgical History Surgical History H/O hemorrhoidectomy H/O sinus surgery H/O tubal ligation History of inguinal hernia repair, bilateral Previous section x3 Family History Family History Father Family history of bipolar disorder Family history of heart disease in male family member before age 55 Social History Social History (Updated 03/15/24 @ 08:10 by Brooke Espinal DO) Social History: Patient reports that she lives with her cousin in-law and that person's mother. She is finding it difficult to find reliable housing due to limited resources. She is on disability due to her psychiatric illness. She denies any heavy alcohol use but does drink alcohol on occasion in moderation. She does have a history of intermittent smoking of methamphetamine. She has smoked approximately half a pack of cigarettes per day since her late teens or early 20s. She has 3 sons ages 17, 18 and 23. She likes to play guitar. Code status: Full code Surrogate decision maker: Moody (18-year-old son) phone number [phone] Smoking packs per day: 1 Smoking cigarettes per day: 20.0 Years smoked: 20 Smoking pack-years: 20.00 Smoking status: Current every day smoker Alcohol intake: current Alcohol use details: On occasion and in moderation Substance use type: marijuana and methamphetamine Do You Feel Safe in your Home?: Yes Lack of Transportation: YES Lack of Food: Often True Current Housing: I Do Not Have Housing Concerned About Future Housing: YES Difficulty Paying Gas/Electric Bills: Decline to Answer Difficulty Paying for Meds: YES Currently Unemployed: No Education: High School Diploma/GED Difficulty w/ Childcare or Family Care: No Spiritual care concerns: No Meds Home Medications and Allergies Home Medications Medication Instructions Recorded Confirmed Type No Home Medications 03/15/24 03/15/24 History Allergies Allergy/AdvReac Type Severity Reaction Status Date / Time clonazepam Allergy Unknown Unknown Verified 03/15/24 02:30 tramadol AdvReac Unknown NAUSEA Verified 03/15/24 02:30 Vital Signs Vital Signs - 24 hr 03/15/24 20:22 03/16/24 05:00 03/16/24 08:00 Temperature 36.4 C 36.7 C Pulse Rate 83 88 Respiratory Rate 16 14 Blood Pressure 97/56 L 110/79 Pulse Oximetry 95 96 Oxygen Delivery Room Air 03/16/24 14:00 Temperature 37.3 C Pulse Rate 100 Respiratory Rate 14 Blood Pressure 105/63 Pulse Oximetry 98 Oxygen Delivery Results Labs 03/16/24 07:09 03/16/24 07:09 Labs: Abnormal lab results 03/16/24 03/16/24 Range/Units 07:09 12:59 Immature Gran % (Auto) 0.8 H (0-0.5) % Abs Immat Gran (auto) 0.05 H (0.00-0.031) K/mm3 Creatinine 0.60 L (0.7-1.0) mg/dL Total Bilirubin 0.1 L (0.2-1.3) mg/dL Vancomycin Trough 5.6 L (10.0-20.0) ug/mL H & H 03/14/24 03/16/24 Range/Units 18:57 07:09 Hgb 15.2 H 14.2 (12.0-15.0) g/dL Hct 44.7 42.0 (37.0-47.0) % Coagulation 03/14/24 Range/Units 18:57 INR 0.9 All other labs normal.
[2024-03-17 08:23] LABS: Bacterial Vaginosis POSITIVE (NEGATIVE)
[2024-03-17 12:54] LABS: RPR Result REACTIVE (NON-REACTIVE)
[2024-03-17 20:08] LABS: RPR Titer 1:32
== END 2024-03-16 16:15 | disposition short-term general hospital (02) | DRG 603 ==
LOC: ANHED 22:39 → ANH3MEDSUR 03-15 01:59
PROVIDERS: Registered Nurse; Admitting Provider Internal Medicine; Emergency Provider Physician Assistant; Visit Provider Internal Medicine
DX: L03.115 Cellulitis of right lower limb (principal); N39.0 Urinary tract infection, site not specified; F15.20 Other stimulant dependence, uncomplicated; L02.415 Cutaneous abscess of right lower limb; A49.02 Methicillin resistant Staphylococcus aureus infection, unspecified site; N76.0 Acute vaginitis; A59.01 Trichomonal vulvovaginitis; M70.41 Prepatellar bursitis, right knee; A53.0 Latent syphilis, unspecified as early or late; H10.32 Unspecified acute conjunctivitis, left eye; F31.9 Bipolar disorder, unspecified; F60.3 Borderline personality disorder; Z91.148 Patient's other noncompliance with medication regimen for other reason; F17.210 Nicotine dependence, cigarettes, uncomplicated
CPT/HCPCS: 36415; 73564; 73700; 73701; 80053; 80202; 80307; 81001; 81025; 81513; 83605; 83735; 85025; 85610; 85652; 85730; 86140; 86592; 86703; 86780; 87040; 87070; 87086; 87186; 87491; 87591; 87661; 93005; 96361; 96365; 96366; 96367; 96372; 96375; 96376; 99285; A9270; G0378; G0432; J0696; J1200; J1650; J1885; J1956; J2765; J3370; J7030; Q9967